=== PATIENT | female | born 1930 | race Caucasian/White ===

== ENCOUNTER 2016-08-14 15:56 | Inpatient (IN) | payer MEDICARE ==
[~2016-08-14] VITALS: Ht 162.6 cm; Wt 58.2 kg
[2016-08-14 16:30] VITALS: BP 131/83; PULSE 50; RESP 20; O2SAT 99
--- NOTE | 2016-08-14 17:22 | ED.REPORT ---
HPI-General Illness Date of Service Aug 14, 2016 ED Provider: Galindo Nava PA-C Danyell is an 86-year-old female who presents with chief complaint of right leg swelling. History was provided by the patient's son due to her memory problems. Son reports that she was discharged from the hospital in [facility] approximately a week ago and moved in with him. She was admitted for acute kidney injury due to aspirin overdose. Son states that she suffers from hip pain and had repeatedly forgotten taking aspirin for the pain. She presents today due to leg swelling, significantly greater on the right than on the left. She also complains of nonhealing sores on the right leg, a persistent dry cough. Denies other complaints. Son denies other medical history or home medications. Code status: DNR, aggressive care otherwise. Nursing Notes Stated Complaint: RIGHT LEG SWELLING Chief Complaint: General Complaint Nursing Notes Reviewed: Yes Allergies: Coded Allergies: No Known Allergies (Unverified , 08/14/16) No Active Prescriptions or Reported Meds General Time Seen by MD: 16:23 Chief Complaint Other (leg swelling, right) Hx Obtained From: Patient Arrived By: Walk-in Sudden in Onset?: No Severity: Current: No pain currently Severity: Maximum: No pain Recent Healthcare: Recent doctor visit, Recent testing Similar Sx Previous: No Past Medical History Past Medical History Notes: records from recent hospitalization in [place] with transfer to [facility] are reviewed Past Medical History ROSHNI Metabolic encephalopathy Hx accidental salicylate overdose with Metabolic encephalopathy 07/2016 requiring breif renal dialysis No history of CHF Past Surgical History none reported Review of Systems General: Denies fever, chills, malaise. HEENT: Denies congestion, headache, sore throat. Respiratory: Admits dry cough. Denies dyspnea, shortness of breath, wheezing. Cardiovascular: Denies chest pain, palpitations. Gastrointestinal: Denies vomiting, diarrhea, abdominal pain. Genitourinary: Denies frequency, urgency, dysuria, hematuria. Otherwise as noted in HPI. Complete sys rev & neg: except as marked. Physical Exam General: Well developed, well nourished, no acute distress. Head: Atraumatic, normocephalic. Eyes: No scleral icterus or injection. No discharge. Vision grossly intact. ENT: Voice clear, hearing grossly intact. Respiratory: Clinically evident cough. Regular rate and rhythm. Fine crackles in all lung stark. Cardiovascular: Regular rate and rhythm, without murmur, gallop or rub. 1+ pitting edema left leg 3+ pitting edema right leg Gastrointestinal: Abdomen flat and non-tender without guarding or rebound. Bowel sounds normoactive. Skin: 2 cm ulcer posterior right lower leg. Warm and dry. Musculoskeletal: Right leg significantly more swollen than the left leg to the level of the upper thigh. Neurological: Grossly nonfocal. Psychological: Appears slightly confused, son provides most history Vital Signs Vital Signs Date Time Temp Pulse Resp B/P Pulse Ox O2 Delivery O2 Flow Rate FiO2 08/14/16 21:12 90 16 128/67 96 08/14/16 18:09 118 25 122/89 98 Room Air 08/14/16 16:30 36.4 50 20 131/83 99 Initial bradycardia noted. Heart rate noted to range from 80-110 on monitor during physical exam Initial VS: Reviewed, Vital signs normal Interpretation & Diagnostics Lab Results Interpretation Result Diagram: 08/14/16 1805 08/14/16 1805 Test 08/14/16 18:05 08/14/16 20:20 White Blood Count 13.9th/mm3 (3.8-10.1) Red Blood Count 4.20mil/mm3 (3.90-5.20) Hemoglobin 12.3g/dL (12.0-15.6) Hematocrit 38.7% (35.0-46.0) Mean Corpuscular Volume 92.1fL (81-100) Mean Corpuscular Hemoglobin 29.3pg (27.0-35.0) Mean Corpuscular Hemoglobin Concent 31.8% (32.0-37.0) Red Cell Distribution Width 16.2% (12.3-15.4) Platelet Count 120bil/L (150-400) Neutrophils (%) (Auto) 79.8% (40-74) Lymphocytes (%) (Auto) 11.1% (14-46) Monocytes (%) (Auto) 8.6% (4-12) Eosinophils (%) (Auto) 0.1% (0-5) Basophils (%) (Auto) 0.1% (0-3) Sodium Level 144mEq/L (134-144) Potassium Level 4.3mEq/L (3.5-5.2) Chloride Level 106mEq/L (97-108) Carbon Dioxide Level 22mmol/L (18-29) Blood Urea Nitrogen 26mg/dL (8-27) Creatinine 1.15mg/dL (0.57-1.00) Estimat Glomerular Filtration Rate 64mL/min (>59) Glucose Level 106mg/dL (60-99) Calcium Level 8.8mg/dL (8.5-10.1) Magnesium Level 2.1mg/dL (1.6-2.6) Total Bilirubin 0.6mg/dL (0.0-1.2) Aspartate Amino Transf (AST/SGOT) 24U/L (0-50) Alanine Aminotransferase (ALT/SGPT) 25U/L (0-32) Alkaline Phosphatase 123U/L (25-165) Troponin T 0.029ug/L (0.0-0.011) Pro-B-Type Natriuretic Peptide 95072je/mL (0-738) Total Protein 6.0g/dL (6.4-8.4) Albumin 3.2g/dL (3.4-5.0) Urine Color Straw (YELLOW) Urine Appearance Slightly cloudy Urine pH 5.5 (5.0-8.0) Urine Specific [place] 1.015 (1.003-1.035) Urine Protein 30mg/dL (NEG,TRACE) Urine Glucose (UA) Negativemg/dL (NEGATIVE) Urine Ketones Negativemg/dL (NEGATIVE) Urine Occult Blood Small (NEGATIVE) Urine Nitrite Positive (NEGATIVE) Urine Bilirubin Negative (NEGATIVE) Urine Urobilinogen Normalmg/dL (NORMAL) Urine Leukocyte Esterase Small (NEGATIVE) Urine RBC 0-2/hpf (0-2) Urine WBC Packed/hpf (0-5) Urine Epithelial Cells Few/hpf (NONE-MOD) Urine Crystals None seen (NONE SEEN) Urine Bacteria Many/hpf (NONE-FEW) Urine Hyaline Casts None/lpf (NONE) Urine Granular Casts None seen (NONE SEEN) Urine Waxy Casts None seen (NONE SEEN) Urine Red Blood Cell Casts None seen (NONE SEEN) Urine White Blood Cell Casts None seen (NONE SEEN) Urine Mucus None seen (None Seen) Urine Trichomonas None seen (NONE SEEN) Urine Yeast None (NONE SEEN) Urine Culture Reflexed Indicated ECG Interpretation Interpreted by: ED physician Abnormal Rate: 120 Rhythm / Conduction: Ectopic beats - PAC's, LBBB - complete X-Ray Chest Interpretation Chest Xray Interpretation: PROCEDURE: X-RAY CHEST ONE VIEW, PORTABLE ([id number]) INDICATIONS: bilateral crackles IMPRESSION: Small bilateral pleural effusions, left greater than right, with adjacent atelectasis. Interpretation / Wet Read by: Interpret - Radiologist, Inter - [facility] CT Chest Interpretation IMPRESSION: No pulmonary embolism Bilateral small-moderate pleural effusions with adjacent atelectasis. Cardiomegaly, and CT evidence of decreased cardiac output. Recommend clinical correlation Rounded consolidation within the right middle lobe which could represent scarring although technically indeterminate. Recommend followup noncontrast chest CT in 3 months to exclude metastatic/malignant nodule. Severely motion degraded examination Dictated by: Alirio Amor M.D. on 08/14/2016 at 20:33 Approved by: Alirio Amor M.D. on 08/14/2016 at 20:33 Study type: CT pulm angiogram Interpretation / Wet Read by: Interpret - Radiologist US Focused Lower Ext Venous PROCEDURE: US VENOUS LEG DUPLEX UNILATERAL, RIGHT INDICATIONS: leg swelling FINDINGS: Thrombus is present within the mid and distal femoral vein, and popliteal vein. IMPRESSION: Deep venous thrombosis in the right lower extremity as above Exam Interpreted by: Radiologist Re-Eval/Medical Decision Med Decision/Clinical Course Presents with right lower extremity edema. Recent admission to the hospital with transfer to higher level of care for acute salicylate toxicity. She is taking excessive doses of aspirin to help with hip pain. did end up having dialysis Records are reviewed. She returned home with her son and daughter right leg is been increasingly swollen came in to have that evaluated she does have a DVT to the mid thigh. She is tachycardic and short of breath assumption was that she did have pulmonary embolus CT scan was ordered and revealed absence of any central pulmonary emboli Labs are notable for dramatically elevated pro BNP consistent with congestive heart failure which fits with clinical exam as well. Slightly elevated troponin likely as a result of the tachycardia and heart failure. EKG is notable for a sinus tach. Previous notes from recent hospitalization indicate that she has no acute cardiovascular issues. Again reviewed CODE STATUS with family like to be a no code at this point but agressive care to that point Time of Eval: 18:10 Re-Evaluation/Progress Note: Discussed finding of DVT with the patient and family. Patient remains comfortable with no change in condition. Time of Eval: 19:12 Re-Evaluation/Progress Note: Care assumed by Dr. Reynoso from the PA. She is comfortable, tachycardic, she has a positive DVT in the RLE. She has a recent discharge from hospital in [facility] after taking too much aspirin for a hip injury putting herself into acute renal failure. Lungs have bibasilar crackles, tachycardic, bilateral lower extremity edema, right more than left, she has a venous stasis ulcer 1x2 cm back of right calf Time of Eval: 21:29 Re-Evaluation/Progress Note: Pt rechecked. Informed pt of need for admission. Pt understands and agrees with plan for admission. All questions addressed. Code status discussed: DNR, aggressive care otherwise. Consultation : Referral / Consult Name: Hope Power MD Consulted With: Hospitalist Call Returned at: 22:21 Supervisor Data Processing: Will see patient, Agrees with eval, Agrees with plan, Accepts admit Counseled Regarding: Diagnosis, Lab results, Need for admission Discharge & Departure Primary Impression: Acute CHF Congestive heart failure type: unspecified congestive heart failure type Qualified Code: I50.9 - Heart failure, unspecified Additional Impressions: Deep vein thrombosis (DVT) of femoral vein of right lower extremity Chronicity: acute Qualified Code: I82.411 - Acute embolism and thrombosis of right femoral vein Leukocytosis Leukocytosis type: unspecified Qualified Code: D72.829 - Elevated white blood cell count, unspecified Sinus tachycardia Ruled Out: Pulmonary embolism, STEMI (ST elevation myocardial infarction), Sepsis Disposition: ADMITTED TO HOSPITAL Discharge Condition All VS Reviewed: Yes Condition: Stable Scribe Attestation Portions of this note were transcribed by Sam Dickens. I, Dr. Reynoso personally performed the history, physical exam and medical decision-making; I reviewed and confirmed the accuracy of the information in the transcribed note. Signed by Sally Magaña, 08/14/15 - 1913 Galindo Nava PA-C Aug 14, 2016 17:22 SAM DICKENS Aug 14, 2016 19:15 Kallie Reynoso MD Aug 14, 2016 22:13
--- NOTE | 2016-08-14 17:58 | DRSVH ---
PROCEDURE: X-RAY CHEST ONE VIEW, PORTABLE ([id number]) INDICATIONS: bilateral crackles TECHNIQUE: One view of the chest was acquired. COMPARISON: None. FINDINGS: Surgical changes and devices: None. Lungs and pleura: Bilateral small pleural effusions, left greater than right. Adjacent atelectasis. N o pneumothorax. Mediastinum: Mediastinal contours appear normal. Heart size is normal. Bones and chest wall: No suspicious bony lesions. Overlying soft tissues appear unremarkable. Late ral curvature of the spine. IMPRESSION: Small bilateral pleural effusions, left greater than right, with adjacent atelectasis. Dictated by: Alirio Amor M.D. on 08/14/2016 at 17:56 Approved by: Alirio Amor M.D. on 08/14/2016 at 17:56
[2016-08-14 18:09] VITALS: BP 122/89; PULSE 118; RESP 25; O2SAT 98
[2016-08-14 18:27] LABS: BASOPHILS % (AUTO) 0.1 % (0-3)
[2016-08-14 18:38] LABS: EOSINOPHILS % (AUTO) 0.1 % (0-5); MONOCYTES % (AUTO) 8.6 % (4-12); Mean Corpuscular Hemoglobin 29.3 pg (27.0-35.0); Mean Corpuscular Volume 92.1 fL (81-100); NEUTROPHILS % (AUTO) 79.8 % (40-74); Platelet Count 120 bil/L (150-400)
--- NOTE | 2016-08-14 18:44 | DRSVH ---
PROCEDURE: US VENOUS LEG DUPLEX UNILATERAL, RIGHT INDICATIONS: leg swelling TECHNIQUE: Real-time imaging, as well as color and pulse Doppler interrogation, were performed of the lower extr emity deep veins from the inguinal ligament to the popliteal fossa. COMPARISON: None. FINDINGS: Thrombus is present within the mid and distal femoral vein, and popliteal vein. IMPRESSION: Deep venous thrombosis in the right lower extremity as above Dictated by: Alirio Amor M.D. on 08/14/2016 at 18:42 Approved by: Alirio Amor M.D. on 08/14/2016 at 18:42
[2016-08-14 18:46] LABS: TROPONIN T 0.029 ug/L (0.0-0.011)
[2016-08-14 19:00] LABS: Magnesium 2.1 mg/dL (1.6-2.6)
--- NOTE | 2016-08-14 20:36 | DRSVH ---
PROCEDURE: CT ANGIO CHEST PULMONARY EMBOLISM ([id number]) INDICATIONS: deep vein thrombosis, tachycardia TECHNIQUE: After the administration of intravenous contrast, 2 mm thick sections acquired from the pulmonary api yuki to the posterior costophrenic angles. 3-dimensional maximum intensity projection (MIP) coronal a nd sagittal reformats were then acquired through the thorax. For radiation dose reduction, the follo wing was used: automated exposure control, adjustment of mA and/or kV according to patient size. COMPARISON: None. FINDINGS: Image quality: Severely motion degraded. Pulmonary arteries: Pulmonary arteries are normal in size, and demonstrate no intraluminal filling d efects to suggest central pulmonary embolism. Lungs and pleura: Bilateral small moderate pleural effusions, left greater than right. Adjacent atel ectasis is seen. 1.2 cm subpleural rounded consolidation image 34 in the right middle lobe Mediastinum: Heart size is enlarged, without pericardial effusion. Reflux of contrast into the hepat ic veins suggests decreased cardiac output. No mediastinal or hilar adenopathy. Thoracic aorta is no rmal in caliber and enhancement. Esophagus is normal in caliber, without hiatal hernia. Bones and chest wall: No suspicious bony lesions. Ribs and thoracic spine appear intact throughout. Thyroid gland unremarkable. No axillary or supraclavicular adenopathy. Abdomen: Visualized upper abdominal solid organs appear normal in the early arterial phase of enhanc ement. IMPRESSION: No pulmonary embolism Bilateral small-moderate pleural effusions with adjacent atelectasis. Cardiomegaly, and CT evidence of decreased cardiac output. Recommend clinical correlation Rounded consolidation within the right middle lobe which could represent scarring although technicall y indeterminate. Recommend followup noncontrast chest CT in 3 months to exclude metastatic/malignant nodule. Severely motion degraded examination Dictated by: Alirio Amor M.D. on 08/14/2016 at 20:33 Approved by: Alirio Amor M.D. on 08/14/2016 at 20:33
[2016-08-14 21:12] VITALS: BP 128/67; PULSE 90; RESP 16; O2SAT 96
[2016-08-14] MEDS ORDERED: Furosemide 10 mg/mL 4 mL Inj IVPUSH ONE (22:05)
[2016-08-14] MEDS ORDERED: Alum-Mag Hydrox-Simeth 30 mL Suspension PO PRN ×2 (22:50→23:15)
[2016-08-14] MEDS ORDERED: Ondansetron 2 mg/mL 2 mL Inj IVPUSH PRN (22:50)
[2016-08-14 23:05] LABS: APPEARANCE,URINE SLIGHTLY CLOUDY (CLEAR,HAZY); COLOR,URINE STRAW (YELLOW); OCCULT BLOOD,URINE SMALL (NEGATIVE); PH,URINE 5.5 (5.0-8.0); UROBILINOGEN,URINE NORMAL (NORMAL)
[2016-08-14] MEDS ORDERED: Senna-Docusate 8.6-50 mg Tablet PO PRN (23:15)
[2016-08-14] MEDS ORDERED: Polyethylene Glycol (PEG) 17 Gm Powder PO PRN (23:15)
[2016-08-14 23:23] VITALS: BP 131/71; PULSE 121; RESP 25; O2SAT 98
[2016-08-14 23:36] VITALS: BP 120/83; PULSE 121; RESP 20; O2SAT 97
[2016-08-14] MEDS ORDERED: Heparin 5,000 Unit/mL Inj IVPUSH PRN (23:50)
[2016-08-14] MEDS ORDERED: Heparin 5,000 Unit/mL Inj IVPUSH ONE (23:50)
[2016-08-15] VITALS (9 sets, daily range): BP systolic 96–135; BP diastolic 49–73; PULSE 64–128; RESP 18–22; O2SAT 91–97
--- NOTE | 2016-08-15 00:09 | PCM.HPMED ---
Subjective Date of Service Aug 14, 2016 Primary Provider: Admitting Physician: Hope Power MD Primary Care Physician: Scottie Tay DO Attending Physician: Hope Power MD Chief Complaint: Right lower extremity swelling and pain History of Present Illness: Danyell is an 86-year-old female with recent history of acute renal failure requiring short-term hemodialysis (secondary to suspected aspirin toxicity), and no other significant medical history who presents to the ER with bilateral lower extremity edema worse on the right and associated with pain. Danyell reports that she has had pain and increased swelling in her right lower extremity for the last several days. She notes that her legs have been swollen since her hospitalization just prior to [facility] in the [facility] in [place]. She presents with her daughter and son-in-law. They report that her primary care physician, Dr. Scottie Tay, came over to the house and looked at her leg, and recommended that they go to the ER. She also reports that there is a sore on the back of her right lower leg that has been weeping and producing some pus (per her family's report). She reports feeling cold in her feet bilaterally. Following her hospitalization, she moved in with her daughter and son-in-law. She was previously ambulatory, but not so much now due to pain in her leg. They otherwise denying bleeding/clotting issues historically, prolonged travel lately. However, she has been spending more time in bed since the swelling got worse. She otherwise denies chest pain, shortness of breath (though she does note that she sleeps at night with a large pillow under her back and head). She is also been having some difficulty with swallowing lately. Her only regular medication, a multivitamin, it is no longer being administered due to this difficulty with swallowing. Family denies any overt difficulties with food or water (though they do note that she does not drink enough), and there has not been any choking or coughing. Danyell does note that there are white spots on her tongue that are irritated by certain foods, and does note that she was not even able to eat an apple today due to this irritation. She otherwise denies complaints. Please note, she is no longer on aspirin. Review of Systems: Comprehensive review of systems conducted and was negative except for the pertinent positives listed in history of present illness above. Allergies Coded Allergies: No Known Allergies (Unverified , 08/14/16) Home Medications Patient and family report that she takes a daily multivitamin, though not lately due to swallowing issues. PMH Reportedly significant for: Acute renal failure secondary to suspected aspirin toxicity, requiring short- term hemodialysis (end of July,) Otherwise denies significant medical history. Reports hysterectomy for unknown purpose decades ago. Otherwise denies significant surgical history Family History Family history is significant for her father who following a myocardial infarction at the age of 56 She otherwise denies significant family medical history Social History Hx Alcohol Use: No Hx Substance Use: No Hx Tobacco Use: No Smoking Status: Never Smoker Living Arrangement: with Family Additional Information Previously of [facility]. Following hospitalization for renal failure around [place] of 2015 she moved in with her daughter and son-in-law, and now lives in [place]. Exam Vital Signs Vital Sign - Last Date Time Temp Pulse Resp B/P Pulse Ox O2 Delivery O2 Flow Rate FiO2 08/14/16 21:12 90 16 128/67 96 08/14/16 18:09 Room Air 08/14/16 16:30 36.4 Exam General: Cooperative, No Acute Distress, sitting up on ER [facility] Head: Normocephalic, atraumatic. External ears normal. Eyes: PERRL, EOMI. Anicteric sclerae. Mouth: Mouth Normal, Mucous Membranes Moist/Colony, there are white elevated spots on the tongue, but no other mucosal indication of erythema or white patches Neck: Neck supple with full range of motion. No Thyromegaly. Chest & Lungs: Clear to auscultation bilaterally with minimal crackles, and no wheezes, or rhonchi. Please note that she has diminished breath sounds in the left base Cardiovascular: Tachycardic Rate/Rhythm, Normal S1, Normal S2, No Murmurs/Rubs/ Gallops appreciated. Radial and posterior tibial pulses are 2+ bilaterally. JVD present Abdomen: Non-tender, Non-distended, No masses, Normoactive bowel tones, Soft Musculoskeletal: Normal Range of Motion, though somewhat lessened due to pain in the right lower extremity Extremities: Moderate to significant pitting edema in the bilateral lower extremities to the thigh (right greater than left). There is some mild prolonged capillary refill in the bilateral toes. There is an area of superficial ulceration on the right posterior lower leg (approximately 3 superficial ulcerations with minimal surrounding erythema and some serous discharge on the bed sheets). The largest of these is approximately 1 cm x 1 cm. Neurological: Alert, Oriented X3, Grossly Neurologically Intact, Cranial Nerves 2-12 Intact, Normal Speech Psych: Normal mood and affect. Thought process and content intact. Lab and Diagnostics Labs Laboratory Tests 72 Hours Test 08/14/16 18:05 08/14/16 20:20 White Blood Count 13.9th/mm3 (3.8-10.1) Red Blood Count 4.20mil/mm3 (3.90-5.20) Hemoglobin 12.3g/dL (12.0-15.6) Hematocrit 38.7% (35.0-46.0) Mean Corpuscular Volume 92.1fL (81-100) Mean Corpuscular Hemoglobin 29.3pg (27.0-35.0) Mean Corpuscular Hemoglobin Concent 31.8% (32.0-37.0) Red Cell Distribution Width 16.2% (12.3-15.4) Platelet Count 120bil/L (150-400) Neutrophils (%) (Auto) 79.8% (40-74) Lymphocytes (%) (Auto) 11.1% (14-46) Monocytes (%) (Auto) 8.6% (4-12) Eosinophils (%) (Auto) 0.1% (0-5) Basophils (%) (Auto) 0.1% (0-3) Sodium Level 144mEq/L (134-144) Potassium Level 4.3mEq/L (3.5-5.2) Chloride Level 106mEq/L (97-108) Carbon Dioxide Level 22mmol/L (18-29) Blood Urea Nitrogen 26mg/dL (8-27) Creatinine 1.15mg/dL (0.57-1.00) Estimat Glomerular Filtration Rate 64mL/min (>59) Glucose Level 106mg/dL (60-99) Calcium Level 8.8mg/dL (8.5-10.1) Magnesium Level 2.1mg/dL (1.6-2.6) Total Bilirubin 0.6mg/dL (0.0-1.2) Aspartate Amino Transf (AST/SGOT) 24U/L (0-50) Alanine Aminotransferase (ALT/SGPT) 25U/L (0-32) Alkaline Phosphatase 123U/L (25-165) Troponin T 0.029ug/L (0.0-0.011) Pro-B-Type Natriuretic Peptide 82283mm/mL (0-738) Total Protein 6.0g/dL (6.4-8.4) Albumin 3.2g/dL (3.4-5.0) Urine Color Straw (YELLOW) Urine Appearance Slightly cloudy Urine pH 5.5 (5.0-8.0) Urine Specific Leon 1.015 (1.003-1.035) Urine Protein 30mg/dL (NEG,TRACE) Urine Glucose (UA) Negativemg/dL (NEGATIVE) Urine Ketones Negativemg/dL (NEGATIVE) Urine Occult Blood Small (NEGATIVE) Urine Nitrite Positive (NEGATIVE) Urine Bilirubin Negative (NEGATIVE) Urine Urobilinogen Normalmg/dL (NORMAL) Urine Leukocyte Esterase Small (NEGATIVE) Urine RBC 0-2/hpf (0-2) Urine WBC Packed/hpf (0-5) Urine Epithelial Cells Few/hpf (NONE-MOD) Urine Crystals None seen (NONE SEEN) Urine Bacteria Many/hpf (NONE-FEW) Urine Hyaline Casts None/lpf (NONE) Urine Granular Casts None seen (NONE SEEN) Urine Waxy Casts None seen (NONE SEEN) Urine Red Blood Cell Casts None seen (NONE SEEN) Urine White Blood Cell Casts None seen (NONE SEEN) Urine Mucus None seen (None Seen) Urine Trichomonas None seen (NONE SEEN) Urine Yeast None (NONE SEEN) Urine Culture Reflexed Indicated Result Diagram: 08/14/16180408/14/161804 X-Rays, CTs and MRIs Date of Service: 08/14/161702 PROCEDURE: US VENOUS LEG DUPLEX UNILATERAL, RIGHT INDICATIONS: leg swelling COMPARISON: None. IMPRESSION: Deep venous thrombosis in the right lower extremity as above Dictated by: Alirio Amor M.D. on 08/14/2016 at 18:42 Date of Service: 08/14/16 1706 PROCEDURE: X-RAY CHEST ONE VIEW, PORTABLE ([id number]) INDICATIONS: bilateral crackles COMPARISON: None. IMPRESSION: Small bilateral pleural effusions, left greater than right, with adjacent atelectasis. Dictated by: Alirio Amor M.D. on 08/14/2016 at 17:56 Date of Service: 08/14/161818 PROCEDURE: CT ANGIO CHEST PULMONARY EMBOLISM ([id number]) INDICATIONS: deep vein thrombosis, tachycardia COMPARISON: None. IMPRESSION: No pulmonary embolism Bilateral small-moderate pleural effusions with adjacent atelectasis. Cardiomegaly, and CT evidence of decreased cardiac output. Recommend clinical correlation Rounded consolidation within the right middle lobe which could represent scarring although technically indeterminate. Recommend followup noncontrast chest CT in 3 months to exclude metastatic/malignant nodule. Severely motion degraded examination Dictated by: Alirio Amor M.D. on 08/14/2016 at 20:33 12-lead ECG Sinus tachycardia with a rate of 119, left axis deviation, prolonged QRS, prolonged QTC (504), left bundle branch block of unknown chronicity, poor R- wave progression, nonspecific ST-T wave changes. No previous ECG for comparison. Assessment & Plan 86-year-old female with recent hospitalization for acute renal failure who presents with lower extremity edema, worse on the right and findings consistent with right lower extremity DVT and congestive heart failure. 1. Congestive heart failure of unknown type and chronicity (with bilateral lower extremity edema, and bilateral pleural effusions), present on admission * Unclear etiology at this time. * Differential includes: CAD, ischemia (difficult to assess by ECG given her bundle branch block) but no symptoms to suggest, no murmurs to suggest valvular etiology, she is not hypertensive, consider: Thyroid dysfunction, infection. * Check TSH and free T4 * Echo tomorrow * Repeat ECG in the morning * Warm and wet: Lasix IV tonight, with reassessment of renal function and symptoms in the morning. Consideration for continuing diuretic in the morning * Following echo consideration for initiating heart failure medications: Diuretic, CESILIA/ARB (or hydralazine and nitrates if renal decompensation), beta edin. * CHF clinic * Telemetry monitoring * Daily standing weights * Chest x-ray in a couple days 2. Right lower extremity DVT, acute, present on admission * Perhaps related to prolonged time in bed following hospitalization * Heparin drip, therapeutic * Avoid compression of lower extremities * Increase out of bed mobility once able to bear weight * No reported falls historically. Consideration for anticoagulation prior to discharge. 3. Superficial cutaneous ulcerations of the right lower extremity, present on admission * Likely secondary to the significant edema in the right lower extremity * Do not appear to be acutely infected, though the possibility is certainly there given her elevated white blood cell count * We will hold off on antibiotics tonight * Wound care ordered * Nursing to follow wound care orders regarding bandaging 4. Leukocytosis with 80% neutrophils, present on admission (family notes that her white blood cells were elevated at previous hospitalization) * Perhaps related to ulceration, but given its unknown chronicity, would hesitate to initiate antibiotics at this time * We will follow up with wound care and continue to trend labs 5. Prolonged QTc, present on admission * Repeat ECG in the morning * She is not on any QT prolonging medications, and this may be secondary to her rhythm * Avoid QT prolonging medications * Keep potassium greater than 4, and magnesium greater than 2 6. Thrombocytopenia of unknown chronicity, present on admission * No indication of clear etiology based on presentation and history * We will continue to follow labs 7. Elevated creatinine in patient with recent history of acute renal failure, present on admission * We will need to request records from previous hospitalization * We will start with diuresis tonight for management of #1, but we will continue to monitor her renal function closely * Avoid renally toxic medications as able 8. Elevated troponin, present on admission * Likely related to CHF and her tachycardia, no history of CAD * Differential includes: CAD/ischemia, elevation secondary to renal insufficiency * We will trend troponins * Telemetry * Management of other acute medical conditions as above 9. Rounded consolidation within the right middle lobe of unknown chronicity, present on admission and noted on CT * Unclear etiology * Differential includes infectious (less likely given benign respiratory presentation), malignant, inflammatory, and also scarring was mentioned by radiology * At this time will not initiate any additional intervention other than as noted above * Radiology recommends chest CT without contrast in 3 months to assess for possibility of malignancy PRN MEDICATIONS - Acetaminophen as needed for mild pain/fever/headache - Bowel regimen as needed Patient is admitted under inpatient status with expected length of stay greater than 2 midnights due to severity of presenting symptoms, risk of adverse event, and complexity of treatment plan. Pain Evaluation: Adequate Pain Control GI Prophylaxis: Not indicated VTE Prophylaxis: Other (therapeutic heparin for DVT) Resuscitation Status: Limited Interventions (okay for defibrillation and medication and BiPAP. NO intubation, NO compressions) Attending Statement Pt seen and examined by myself and agree with above plan. copies to: Scottie Tay Collin T DO Aug 14, 2016 23:56 Hope Power MD Aug 15, 2016 06:08
[2016-08-15] MEDS: Sodium Chloride LOK Flush 10 mL Syringe IVFLUSH SCH ×3 (00:58→16:29)
[2016-08-15] MEDS: Heparin 25K Unit/500mL 0.45 NS 25,000 UNIT in IV Premix 1 EACH IV SCH (01:07)
--- NOTE | 2016-08-15 03:18 | NUR ---
Admit to room 3029 @ 2310 with RLE DVT. Pain controlled by repositioning leg onto pillows and sara for weeping anasarca. A&Ox3 Oriented to room and poc on whiteboard. VSS slightly tachycardic 100's with dry non-productive cough. Sat's 98% on RA.
--- NOTE | 2016-08-15 03:28 | NUR ---
Med Rec not currently taking any medications at this time. Although did mention getting a sleep aid from chiropractor. Patient named the pill "sleep" but could not be more specific. Will follow up with family on dayshift.
[2016-08-15 06:55] LABS: BASOPHILS % (AUTO) 0.2 % (0-3); EOSINOPHILS % (AUTO) 0.2 % (0-5); MONOCYTES % (AUTO) 8.7 % (4-12); Mean Corpuscular Hemoglobin 30.1 pg (27.0-35.0); Mean Corpuscular Volume 91.3 fL (81-100); NEUTROPHILS % (AUTO) 79.1 % (40-74); Platelet Count 125 bil/L (150-400)
[2016-08-15] MEDS ORDERED: cefTRIAXone Inj 2,000 MG in IV Premix 1 EACH IV ONE (07:55)
[2016-08-15] MEDS ORDERED: 0.9% Sodium Chloride 250 ML ONE (09:08)
--- NOTE | 2016-08-15 13:26 | PCM.CHPCAR ---
Consult Subjective Date of service Aug 15, 2016 Date of admit Aug 14, 2016 at 21:53 Provider Requesting Consult Requesting Provider: FANTASMA QUINN HOSPITALIST Primary Care Physician Primary Care Provider: Scottie Tay DO Chief Complaint Leg edema History of Present Illness Danyell is an very pleasant 86 y/o female with no prior cardiac history. She has recently moved to [facility] after recently being hospitalized for acute ASA toxicity and needed dialysis. However she is no longer on dialysis. She presents to [facility] ER with complaints of b/l lower extremity edema worse on right than left. Ultrasound discovered a DVT in her right leg. She has been very ambulatory but since her legs started to swell she has been more sedentary. She denies any bleeding issues. Her pBNP was significantly elevated and had some crackles on lung examination so there were concerns for new onset CHF. She had an echocardiogram just now and on preliminary report she has severely reduced LVEF with apical clot. Her EKG shows ST with LBBB as well. Otherwise, she is comfortable lying in bed and has not had any complaints of CP , SOB at rest, near syncope or syncope. Review of Systems Review of Systems Comprehensive review of systems conducted and was negative except for the pertinent positives listed in history of present illness above. PMH Past Medical History PMH Reportedly significant for: Acute renal failure secondary to suspected aspirin toxicity, requiring short- term hemodialysis (end of July,) Otherwise denies significant medical history. Reports hysterectomy for unknown purpose decades ago. Otherwise denies significant surgical history No Active Prescriptions or Reported Meds Current Inpatient Medications Current Medications Al Hydrox/Mg Hydrox/Simethicone 30 ml Q6 PRN PO; Start 08/14/16 at 22:50; Stop 08/14/16 at 23:40; Status DC Ondansetron HCl Dose range: 4 mg to 8 mg Q4H PRN IVPUSH; Start 08/14/16 at 22:50 Acetaminophen 975 mg Q6H PRN PO; Start 08/14/16 at 22:50; Stop 08/14/16 at 23:40 ; Status DC Sodium Chloride 10 ml GEETHA IVFLUSH Last administered on 08/15/16t 00:58; Admin Dose 10 ML; Start 08/15/16 at 00:30 Al Hydrox/Mg Hydrox/Simethicone 30 ml Q6 PRN PO; Start 08/14/16 at 23:15 Senna 2 tablet BID PRN PO; Start 08/14/16 at 23:15 Polyethylene Glycol 17 gm DAILY PRN PO; Start 08/14/16 at 23:15 Acetaminophen 650 mg Q6H PRN PO Last administered on 08/15/16 06:03; Admin Dose 650 MG; Start 08/14/16 at 23:15 Heparin Sodium (Porcine) Per Protocol for a... PRN PRN IVPUSH; Start 08/14/16 at 23:50 Aspirin 81 mg DAILY PO; Start 08/15/16 at 08:30; Stop 08/15/16 at 08:30; Status DC Metoprolol Tartrate 12.5 mg BID PO Last administered on 08/15/16 09:17; Admin Dose 12.5 MG; Start 08/15/16 at 08:30; Stop 08/15/16 at 12:23; Status DC Lisinopril 2.5 mg DAILY PO; Start 08/15/16 at 12:25 Allergies: Coded Allergies: No Known Allergies (Unverified , 08/14/16) Family History Family History Family history is significant for her father who following a myocardial infarction at the age of 56 She otherwise denies significant family medical history Social History Hx Alcohol Use: NoHx Substance Use: NoHx Tobacco Use: No Smoking Status: Never Smoker Living Arrangement: with Family Exam Vital Signs Vital Sign - Last Date Time Temp Pulse Resp B/P Pulse Ox O2 Delivery O2 Flow Rate FiO2 08/15/16 10:18 128 08/15/16 09:12 36.5 20 117/67 95 Room Air Intake and Output 08/14/16 08/14/16 08/15/16 Cumulative From/Thru 15:00 23:00 07:00 08/14/16 16:30 - 08/15/16 06:48 Intake Total 526 ml 526 ml Output Total 2475 ml 2475 ml Balance -1949 ml -1949 ml Intake Oral 400 ml 400 ml IV Total 126 ml 126 ml Output Urine Total 2475 ml 2475 ml # Bowel Movements 0 0 Objective General: Cooperative, No Acute Distress Head: Normocephalic, atraumatic. External ears normal. Eyes: PERRL, EOMI. Anicteric sclerae. Mouth: Mouth Normal, Mucous Membranes Moist/[place], there are white elevated spots on the tongue, but no other mucosal indication of erythema or white patches Neck: Neck supple with full range of motion. No Thyromegaly. Chest & Lungs: Clear to auscultation bilaterally with minimal crackles, and no wheezes, or rhonchi. Cardiovascular: Tachycardic Rate/Rhythm, Normal S1, Normal S2, No Murmurs/Rubs/ Gallops appreciated. Radial and posterior tibial pulses are 2+ bilaterally. JVD present Abdomen: Non-tender, Non-distended, No masses, Normoactive bowel tones, Soft Musculoskeletal: Normal Range of Motion, though somewhat lessened due to pain in the right lower extremity Extremities: Moderate to significant pitting edema in the bilateral lower extremities to the thigh (right greater than left). Neurological: Alert, Oriented X3, Grossly Neurologically Intact, Cranial Nerves 2-12 Intact, Normal Speech Psych: Normal mood and affect. Thought process and content intact. Lab and Diagnostics Result Diagram: 08/15/1662508/15/16625 X-Rays, CTs and MRIs Date of Service: 08/14/161818 PROCEDURE: CT ANGIO CHEST PULMONARY EMBOLISM ([id number]) INDICATIONS: deep vein thrombosis, tachycardia TECHNIQUE: After the administration of intravenous contrast, 2 mm thick sections acquired from the pulmonary apices to the posterior costophrenic angles. 3-dimensional maximum intensity projection (MIP) coronal and sagittal reformats were then acquired through the thorax. For radiation dose reduction, the following was used: automated exposure control, adjustment of mA and/or kV according to patient size. COMPARISON: None. FINDINGS: Image quality: Severely motion degraded. Pulmonary arteries: Pulmonary arteries are normal in size, and demonstrate no intraluminal filling defects to suggest central pulmonary embolism. Lungs and pleura: Bilateral small moderate pleural effusions, left greater than right. Adjacent atelectasis is seen. 1.2 cm subpleural rounded consolidation image 34 in the right middle lobe Mediastinum: Heart size is enlarged, without pericardial effusion. Reflux of contrast into the hepatic veins suggests decreased cardiac output. No mediastinal or hilar adenopathy. Thoracic aorta is normal in caliber and enhancement. Esophagus is normal in caliber, without hiatal hernia. Bones and chest wall: No suspicious bony lesions. Ribs and thoracic spine appear intact throughout. Thyroid gland unremarkable. No axillary or supraclavicular adenopathy. Abdomen: Visualized upper abdominal solid organs appear normal in the early arterial phase of enhancement. IMPRESSION: No pulmonary embolism Bilateral small-moderate pleural effusions with adjacent atelectasis. Cardiomegaly, and CT evidence of decreased cardiac output. Recommend clinical correlation Rounded consolidation within the right middle lobe which could represent scarring although technically indeterminate. Recommend followup noncontrast chest CT in 3 months to exclude metastatic/malignant nodule. Date of Service: 08/14/161705 PROCEDURE: X-RAY CHEST ONE VIEW, PORTABLE ([id number]) INDICATIONS: bilateral crackles TECHNIQUE: One view of the chest was acquired. COMPARISON: None. FINDINGS: Surgical changes and devices: None. Lungs and pleura: Bilateral small pleural effusions, left greater than right. Adjacent atelectasis. No pneumothorax. Mediastinum: Mediastinal contours appear normal. Heart size is normal. Bones and chest wall: No suspicious bony lesions. Overlying soft tissues appear unremarkable. Lateral curvature of the spine. IMPRESSION: Small bilateral pleural effusions, left greater than right, with adjacent atelectasis. 12-lead ECG ST with LBBB Additional Diagnostics: Date of Service: 08/14/161702 PROCEDURE: US VENOUS LEG DUPLEX UNILATERAL, RIGHT INDICATIONS: leg swelling TECHNIQUE: Real-time imaging, as well as color and pulse Doppler interrogation, were performed of the lower extremity deep veins from the inguinal ligament to the popliteal fossa. COMPARISON: None. FINDINGS: Thrombus is present within the mid and distal femoral vein, and popliteal vein. IMPRESSION: Deep venous thrombosis in the right lower extremity as above Assessment & Plan Problems: (1) Acute CHF Qualifiers: Congestive heart failure type: systolic Qualified Code: I50.21 - Acute systolic (congestive) heart failure Plan: Unsure at this point the etiology of her HFrEF. This could have been insidious. She did mention that she has had to increase her head during sleeping over the past 1 year. Certainly, ischemic heart disease should be considered given her elevated troponins but she does not give much in the way acute coronary syndrome. Give her advance age and current fragile state, the patient, family at bedside, and I all agree to defer any aggressive diagnostic procedure at this time and make a solid attempt to start her on usual HF meds. Plus, she just finished getting off of hemodialysis due to ASA toxicity. For now, continue with IV Lasix and start low dose lisinopril for now. If her BP remains normal and when she is near euvolemic state, then we can consider starting low beta blockers such as metoprolol succinate or carvedilol. Status: Acute ICD Code: I50.9 (2) Apical mural thrombus Plan: She is already on IV heparin. I discussed at length her various options with anticoagulations. It sounds like she will like to go on a NOAC. However after much thought on her recent ARF and reduced CrCl estimated at 32, she will need very close monitoring of her renal function to see if she needs to stay on normal dosing versus reduced dosing. Given this, I think it would be safer to put her on warfarin for now. Status: Chronic ICD Code: I21.3 (3) Elevated troponin Plan: I suspect this is more of a demand ischemic event. If she somewhat fragile and with recent ARF and now we starting her on potential nephrotoxic medications (lisinopril and furosemide), I would certainly hold off on coronary angiogram. We discussed about potential adverse outcomes with such a procedure and she will like to defer it for now. Status: Acute ICD Code: R79.89 (4) LBBB (left bundle branch block) Plan: Most likely chronic. Hospital notes and EKGs from [place] would help to see if this is chronic or new onset. Status: Acute ICD Code: I44.7 (5) Deep vein thrombosis (DVT) of femoral vein of right lower extremity Qualifiers: Chronicity: acute Qualified Code: I82.411 - Acute embolism and thrombosis of right femoral vein Plan: Continue with IV heparin and start warfarin tonight. Status: Acute ICD Code: I82.411 Pain Evaluation: Adequate Pain Control VTE Prophylaxis: Other (therapeutic heparin for DVT) Resuscitation Status: Limited Interventions (okay for defibrillation and medication and BiPAP. NO intubation, NO compressions) Time spent 80 minutes. Macario Meehan MD Aug 15, 2016 13:26
[2016-08-15] MEDS: Furosemide 10 mg/mL 4 mL Inj IVPUSH SCH (13:54)
--- NOTE | 2016-08-15 14:53 | NUR ---
Evaluation completed. Rec: Thin/Regular diet. Medication as tolerated. ESTATE AND TRUST TAX PRINCIPAL to sign off. Please go to "Notes" then click on "Assessments and Notes" (bottom left corner of screen). Then select appropriate discipline tab on top of screen.
--- NOTE | 2016-08-15 16:01 | NUR ---
Telemetry Update: Frequent PSVT Bursts Patient has been Sinus Rhythm 100-120s with frequent short bursts of PSVT in the 160s throughout the day. ABBY Delcid aware.
--- NOTE | 2016-08-15 16:25 | NUR ---
Social Work: Brief note Data: Pt is an 86 y/o female admitted for DVT, CHF, elevated triponin, leukocytosis unk s. Pt's PCP is Dr Tay, pt's insurance is Medicare [facility] A[employer] Supp. EMR reviewed. SENIOR RUBY DEVELOPER met with pt at bedside, role explained. Pt states that she lives in [place] but has been visiting her daughter here for the last 3 weeks. She then stated she needed to use the restroom and her nurse helped her with that. SENIOR RUBY DEVELOPER will complete assessment at at later time. SENIOR RUBY DEVELOPER will continue to follow. Plan: SENIOR RUBY DEVELOPER will attempt assessment at a later time. CARISSA Crowell
--- NOTE | 2016-08-15 17:41 | NUR ---
PSVT's Patient had on and off every several minutes of PSVT's from up to 0743 when composite technician called. HR up to 160s.
--- NOTE | 2016-08-15 18:37 | NUR ---
1703 Troponin level Patient troponin level at 1703 at 0.039 (expected value). First critical troponin value from 0945 at 0.038. notified on both
--- NOTE | 2016-08-15 20:06 | DRSVH ---
[facility] [address] [address] Echocardiogram Report Name: JOVANNY DUBON SStudy Date: 08/15/2016 Height: 64 in Hospital Exam Location: [facility] Weight: 132 lb Gender: Female BSA: 1.6 m2 : 1930 Age: 86 yrs BP: 118/ 61 mmHg Reason For Study: Congestive Heart Failure Ordering Physician: HOSPITALIST [facility] Performed By: Freeman Luciano Referring Physician: AMLLY NAVARRETE Interpretation Summary The left ventricle is mildly dilated. There is a moderate size apical thrombus. Left ventricular systolic function is severely reduced. The ejection fraction is estimated to be 15-20%. There is severe global hypokinesis of the left ventricle. There is a significant dyssynchronous contraction pattern, consistent with a conduction abnormality. The E/A ratio is reversed with an elevated E/E', suggesting impaired early relaxation of the left ventricle with possible increased filling pressures. The right ventricle is not well visualized. The right ventricle grossly appears normal in size with probable normal systolic function. Pulmonary artery pressures cannot be estimated because of the lack of a measurable TR jet velocity. Borderline left atrial enlargement. Right atrial size is normal. There is mild mitral regurgitation. There is mild aortic regurgitation. There is no other significant valvular heart disease. The aortic root is normal size. There is a large left-sided pleural effusion. Procedure: A two-dimensional transthoracic echocardiogram with color flow and Doppler was performed. The study quality was technically adequate. There is no prior echocardiogram noted for this patient. The heart rate ranged between 85-127 bpm during the study. Left Ventricle: The left ventricle is mildly dilated. There is normal left ventricular wall thickness. There is a moderate size apical thrombus. Left ventricular systolic function is severely reduced. The ejection fraction is estimated to be 15-20%. There is severe global hypokinesis of the left ventricle. There is a significant dyssynchronous contraction pattern, consistent with a conduction abnormality. The E/A ratio is reversed with an elevated E/E', suggesting impaired early relaxation of the left ventricle with possible increased filling pressures. Right Ventricle: The right ventricle is not well visualized. The right ventricle grossly appears normal in size with probable normal systolic function. Atria: Borderline left atrial enlargement. Right atrial size is normal. There is no Doppler evidence for an atrial septal defect. Mitral Valve: The mitral valve leaflets are slightly calcified. There is mild mitral regurgitation. Aortic Valve: The aortic valve is not well visualized. The aortic valve opens well. There is mild aortic regurgitation. Tricuspid Valve: The tricuspid valve is not well visualized, but is grossly normal. Pulmonary artery pressures cannot be estimated because of the lack of a measurable TR jet velocity. Pulmonic Valve: The pulmonic valve is not well seen, but is grossly normal. There is no pulmonic valvular regurgitation. There is no other significant valvular heart disease. Great Vessels: The aortic root is normal size. The dimensions of the ascending aorta are normal. The pulmonary artery is not well visualized, but is probably normal size. The IVC is of normal diameter and collapses greater than 50% with a sniff. This suggests a low right atrial pressure of 3 mm Hg. Pericardium/ Pleura There is no pericardial effusion. There is a large left -sided pleural effusion. MMode/2D Measurements & Calculations LVIDd: 5.4 cm RA long axis LVOT diam: 1.8 cm LVIDs: 5.0 cm LA A2 area: 20.0 cm Ao root diam: 2.8 cm FS: 6.8 % LA A4 area: 13.7 cm RA area asc Aorta Diam EPSS: 1.4 cm LA length (vol) IVSd: 0.75 cm : 12.4 cm Ao Arch Diam LVPWd: 0.79 cm LA vol: 52.0 ml RA vol (Proximal trans.) LA vol index : 27.2 ml RA : 16.6 mm2 IVC diam: 2.1 cm LV muñoz. diameter/BSALV sys. diameter/BSA (cm/m^2): 3.3 (cm/m^2): 3.1 Doppler Measurements & Calculations Ao V2 max MV E max vito MV E/A: 0.80 MV dec time : 84.6 cm/sec : 60.1 cm/sec Med Peak E' Vito : 0.22 sec Ao max PG MV A max vito : 2.9 mmHg : 75.6 cm/sec E/E' med: 27.2 Ao mean PG LVOT Max Vito : 63.9 cm/sec MARIA EUGENIA(I,D): 2.1 cm sev ratio Ao V2 mean LV V1 max PG MARIA EUGENIA indexed to BSA : 59.7 cm/sec (cm^2/m^2): 1.3 Ao V2 VTI: 12.3 cm LV V1 VTI: 9.9 cm MARIA EUGENIA(V,D): 2.0 cm2 Reading Physician:ASYA
[2016-08-16] VITALS (8 sets, daily range): BP systolic 91–116; BP diastolic 55–85; PULSE 97–122; RESP 20–28; O2SAT 93–96
[2016-08-16] MEDS: Sodium Chloride LOK Flush 10 mL Syringe IVFLUSH SCH ×3 (00:41→16:29)
[2016-08-16] MEDS: Heparin 25K Unit/500mL 0.45 NS 25,000 UNIT in IV Premix 1 EACH IV SCH (04:33)
--- NOTE | 2016-08-16 05:55 | NUR ---
Heparin drip/Sinus tach/Irregular rate Pt is currently on heparin drip, pt's current ptt is 78.4. Per heparin drip protocol, no change in drip rate. Currently on 13u/kg/hr. Has been having intermittent sinus tachycardia and occasional pvc's and ivcds. MD is notified and aware. Pt denies chest pain, sob, n/v and abd discomfort and has been afebrile overnight. Will continue to monitor.
[2016-08-16 06:07] LABS: BASOPHILS % (AUTO) 0.2 % (0-3); EOSINOPHILS % (AUTO) 1.8 % (0-5); MONOCYTES % (AUTO) 7.6 % (4-12); Mean Corpuscular Hemoglobin 29.5 pg (27.0-35.0); Mean Corpuscular Volume 91.4 fL (81-100); NEUTROPHILS % (AUTO) 76.7 % (40-74); Platelet Count 160 bil/L (150-400)
[2016-08-16 06:19] LABS: INR 1.13 ratio
[2016-08-16 06:29] LABS: Magnesium 1.9 mg/dL (1.6-2.6); Phosphorus 2.8 mg/dL (2.5-4.9)
[2016-08-16] MEDS ORDERED: Potassium Chloride 20 mEq/15 mL 15mL Oral Soln PO ONE (07:30)
[2016-08-16] MEDS: Furosemide 10 mg/mL 4 mL Inj IVPUSH SCH (08:49)
[2016-08-16] MEDS ORDERED: Ciprofloxacin Inj 500 MG in IV Premix 1 EACH IV SCH (10:20)
[2016-08-16] MEDS: Amoxicillin-Clav 875-125 mg Tablet PO SCH ×2 (11:03→20:42)
--- NOTE | 2016-08-16 11:29 | NUR ---
Social Work Initial Assessment: SW met with patient and daughter Joanne, at bedside to discuss discharge plan. Patient is a 86 year old female admitted on 08/14/16 for DVT, CHF, Elevated triponin, and leukocytosis. Patient verified name, address, and contact information. Patient resides with daughter in [place] at this time with recent move from [place]. Patient daughter and family provide 24hr care and support. Patient has previous hospitalization history at [facility]. Patient payer as Medicare and AARP. Patient has no exterminator helper termite disability nor VA benefits. Patient PCP as MD Tay. Patient has no previous HHC or SNF history. Patient has a walker and wheelchair for use. Patient daughter believes patient has AD, SW encouraged daughter to bring in from home. Patient pharmacy of choice as [facility]. SW inquired about possible HHC services if recommended at discharge. Patient daughter states not needed HHC at this time as family will be able to provide 24hr care and assistance. No other needs identified at this time. SW to follow. PLAN: Home with 24hr care and support from daughter and transport via POV, pending clinical course. Grant FERRER Addendum: 08/16/16 at 1138 by SANTINO HACKETT Amended: Links added.
--- NOTE | 2016-08-16 12:39 | PCM.PNMED ---
Subjective Date of Service Aug 16, 2016 Subjective pt remained stable, AAOx1-2 no GIB/hemoptysis, c/o mild back pain, which made her difficult to fall asleep denied PND, orthopnea Exam Vital Signs Vital Sign - Last Date Time Temp Pulse Resp B/P Pulse Ox O2 Delivery O2 Flow Rate FiO2 08/16/16 09:29 36.8 104 21 115/85 95 Room Air Intake and Output 08/15/16 08/15/16 08/16/16 Cumulative From/Thru 15:00 23:00 07:00 08/14/16 16:30 - 08/16/16 05:20 Intake Total 800 ml 373 ml 1699 ml Output Total 800 ml 3275 ml Balance 0 ml 373 ml -1576 ml Intake Oral 800 ml 1200 ml IV Total 373 ml 499 ml Output Urine Total 800 ml 3275 ml # Bowel Movements 0 0 Exam NAD, comfortably laying down on the bed alert, Ox1-2 "this is the hospital in [facility]" no JVD, MMM, no LAD RRR, nl s1, s2 no mrg bibasilar crackles, no wheezing S,ND,NT,normoactive BS+ warm, RLE-weeping tender, erythema, LLE=trace edema IVs and Medications Medications Reviewed: Medications were reviewed in detail Lab and Diagnostics Result Diagram: 08/16/1653908/16/16 0540 X-Rays, CTs and MRIs Date of Service: 08/14/16 170 PROCEDURE: US VENOUS LEG DUPLEX UNILATERAL, RIGHT INDICATIONS: leg swelling COMPARISON: None. IMPRESSION: Deep venous thrombosis in the right lower extremity as above Dictated by: Alirio Amor M.D. on 08/14/2016 at 18:42 Date of Service: 08/14/16 1706 PROCEDURE: X-RAY CHEST ONE VIEW, PORTABLE ([id number]) INDICATIONS: bilateral crackles COMPARISON: None. IMPRESSION: Small bilateral pleural effusions, left greater than right, with adjacent atelectasis. Dictated by: Alirio Amor M.D. on 08/14/2016 at 17:56 Date of Service: 08/14/16 1819 PROCEDURE: CT ANGIO CHEST PULMONARY EMBOLISM ([id number]) INDICATIONS: deep vein thrombosis, tachycardia COMPARISON: None. IMPRESSION: No pulmonary embolism Bilateral small-moderate pleural effusions with adjacent atelectasis. Cardiomegaly, and CT evidence of decreased cardiac output. Recommend clinical correlation Rounded consolidation within the right middle lobe which could represent scarring although technically indeterminate. Recommend followup noncontrast chest CT in 3 months to exclude metastatic/malignant nodule. Severely motion degraded examination Dictated by: Alirio Amor M.D. on 08/14/2016 at 20:33 12-lead ECG Sinus tachycardia with a rate of 119, left axis deviation, prolonged QRS, prolonged QTC (504), left bundle branch block of unknown chronicity, poor R- wave progression, nonspecific ST-T wave changes. No previous ECG for comparison. Assessment & Plan 86-year-old female with recent hospitalization for acute renal failure who presents with lower extremity edema, worse on the right and findings consistent with right lower extremity DVT and congestive heart failure. acute, active #RLE DVT, provoked due to immobilization from recent hospitalization, started on heparin gtt, PE negative on CTA -continue heparin gtt, will bridge with coumadin or NOAC per cardiology(needs to discuss with family) #apical mural thrombus, POA, EKG-LBBB:unknown chronicity, troponins trended up. cannot exclude ACS -appreciate cardiology input, especially ischemic w/u -continue AC as above #CHF, POA, TTE 08/15 showed EF 15-20%, severe global hypokinesis, dyssynchrony, large left-sided effusion presumably cardiac -started lasix 40iv daily, judicious use with close monitoring of BP -started [id number], plan to start BB once pt is euvolemic per #acute encephalopathy, POA, likely toxic metabolic given UTI, multiple acute conditions, also with underlying dementia -frequent reorientation, will verify baseline mentation with family #mild ROSHNI, POA, Cr1.15, currently 1.05, recent hx of asa toxicity, renal failure on temporary dialysis -avoid renal toxin, renal adjust meds, -awaiting record from [facility] in [place] #UTI, POA, E.coli+ pansensitive, afebrile. -started Augmentin bid 08/16 chronic, stable #Thrombocytopenia of unknown chronicity, improved #Rounded consolidation within the right middle lobe of unknown chronicity, present on admission and noted on CT, monitor for now, dispo: likely 2-3more days, Limited Interventions (okay for defibrillation and medication and BiPAP. NO intubation, NO compressions) diet: full liquid, advance as tolerate dvt ppx: systemic AC GI Prophylaxis: Not indicated VTE Prophylaxis: Other (therapeutic heparin for DVT) Resuscitation Status: Limited Interventions (okay for defibrillation and medication and BiPAP. NO intubation, NO compressions) Time spent 35min Corrine Montoya MD Aug 16, 2016 12:39
--- NOTE | 2016-08-16 12:53 | DRSVH ---
PROCEDURE: X-RAY CHEST ONE VIEW, PORTABLE ([id number]) INDICATIONS: 86 year-old female with shortness of breath. TECHNIQUE: One view of the chest was acquired. COMPARISON: [facility], CT, CT ANGIO CHEST PE, 08/14/2016, 19:21. [facility] , CR, XR CHEST 1VW (PORTABLE), 08/14/2016, 17:13. FINDINGS: Patient is mildly rotated on the frontal projection. Surgical changes and devices: None. Lungs and pleura: Trace small bibasilar pleural effusions persist, larger on the left. No pneumothor ax. There is persistent retrocardiac opacity. Right lung base opacities have resolved. Lungs are diony r. Mediastinum: Mediastinal contours appear normal. Cardiomegaly is unchanged. Bones and chest wall: No suspicious bony lesions. Overlying soft tissues appear unremarkable. IMPRESSION: 1. Small bibasilar pleural effusions persist, left larger than right. 2. Persistent retrocardiac compressive atelectasis versus pneumonia. 3. Cardiomegaly as before. Dictated by: Alvaro Choe M.D. on 08/16/2016 at 12:50 Approved by: Alvaro Choe M.D. on 08/16/2016 at 12:50
--- NOTE | 2016-08-16 12:54 | PCM.CONPHA ---
Subjective Leg edema Reason for Pharmacy Consult: Anticoagulation Management Assessment/Plan Assessment/Plan Warfarin Management by Pharmacy Indication: Newly diagnosed DVT CHADS2-VASc: 4 Home Dose: New start INR Goal: 2-3 Duration: Unknown Anticoagulation Trends Lab Date Result Dose INR 08/16/16 1.13 Therapeutic bridge therapy: Heparin gtt Assessment/Plan - Warfarin new start for DVT treatment. Currently on heparin bridge. -Will initiate warfarin 2.5 mg today. -Cardiology to discuss with family NOACs vs. warfarin therapy options with decreased renal fx. -Pharmacy to monitor INR/CBC/signs of bleeding while inpatient. Thanks, Regis Nelson Pharm.D. Regis Nelson Aug 16, 2016 12:53
--- NOTE | 2016-08-16 14:59 | NUR ---
08/16/16 Wound Care [facility] Patient evaluated for wound care to right posterior leg. Patient also complains of left mid back pain and right groin pain. Skin assessed to these areas with no evidence of injury or pressure noted. Patient repositioned for comfort. Wound to posterior right leg, per daughter report, caused from compression wrap at previous hospital. Right leg with DVT and significant edema with weeping due to edema. Periwound area purple. Patient with 3 small open areas forming cluster measuring 4.3cmW x 4.6cmL x 0.2cmD with moderate serous weeping drainage. Entire wound area including purple periwound measures 7cmL x 4.5cmW x 0.2cmD. Open areas with 75% slough and 25% dusky pink wound bed. Cleaned wound area with saline. Applied Aquacel AG and covered with Mepilex 4x4. Heel floated and LE elevated following treatment. Nursing to change dressing every 24 to 48 hours and wound care to follow up as needed. Patient mobile in bed and changing position frequently during treatment. Patient and daughter instructed to continue to change positions frequently to decrease risk for pressure ulcer.
[2016-08-17] VITALS (8 sets, daily range): BP systolic 93–119; BP diastolic 54–74; PULSE 82–128; RESP 18–28; O2SAT 96–99
[2016-08-17] MEDS: Sodium Chloride LOK Flush 10 mL Syringe IVFLUSH SCH ×3 (00:41→17:25)
--- NOTE | 2016-08-17 05:57 | NUR ---
Pain/Diarrhea Pt complains of pain on her right calf and on her lower back. Administer tylenol prn for pain. Altho felt a little relief pt states that pain is still there. Denies chest pain, sob, n/v. Pt had 4 episodes of loose diarrhea on shift. Heparin drip running on 13units/kg/hr. Will wait for the next PTT heparin draw @0500. No s/sx of bleeding noted. Will continue to monitor.
[2016-08-17 06:35] LABS: BASOPHILS % (AUTO) 0.2 % (0-3); EOSINOPHILS % (AUTO) 2.4 % (0-5); MONOCYTES % (AUTO) 10.6 % (4-12); Mean Corpuscular Hemoglobin 29.1 pg (27.0-35.0); Mean Corpuscular Volume 90.7 fL (81-100); NEUTROPHILS % (AUTO) 72.2 % (40-74); Platelet Count 182 bil/L (150-400)
[2016-08-17 06:46] LABS: INR 1.06 ratio
[2016-08-17 07:14] LABS: Magnesium 1.9 mg/dL (1.6-2.6); Phosphorus 2.3 mg/dL (2.5-4.9)
[2016-08-17] MEDS: Furosemide 10 mg/mL 4 mL Inj IVPUSH SCH (09:06)
[2016-08-17] MEDS: Amoxicillin-Clav 875-125 mg Tablet PO SCH ×2 (09:06→20:25)
[2016-08-17] MEDS: Heparin 25K Unit/500mL 0.45 NS 25,000 UNIT in IV Premix 1 EACH IV SCH (13:33)
--- NOTE | 2016-08-17 13:39 | PCM.PNCARD ---
Subjective Date of service Aug 17, 2016 Chief Complaint # Severe cardiomyopathy (EF 15-20%) # Moderate sized LV apical thrombus # Mild mitral regurgitation # Mild aortic insufficiency # Right lower extremity DVT History of Present Illness Mrs. Garcia is very pleasant 86 y/o F with no prior cardiac history. The patient was admitted to [facility] ER on 08/14/2016 with complaints of b/l lower extremity edema worse on right than left. The patient subsequently underwent a venous duplex ultrasound that revealed a DVT in her right leg. The patient's pBNP was significantly elevated and she was noted to have some crackles on lung examination. In lieu of the aforementioned findings there were concerns for a new onset of CHF. The patient had an echocardiogram that showed her to have a severely reduced LVEF with a moderate sized LV apical clot. The patient has recently hospitalized for an acute ASA toxicity that ultimately required hemodialysis. The patient is no longer undergoing HD. She has been very active / ambulatory prior to her recent lower extremity swelling. The patient reports that since her lower extremities have been swelling she has been much more sedentary. She denies any history of bleeding issues. 2-D echocardiogram: The left ventricle is mildly dilated. There is a moderate size apical thrombus. Left ventricular systolic function is severely reduced. The ejection fraction is estimated to be 15-20%. There is severe global hypokinesis of the left ventricle. There is a significant dyssynchronous contraction pattern, consistent with a conduction abnormality. The E/A ratio is reversed with an elevated E/E', suggesting impaired early relaxation of the left ventricle with possible increased filling pressures. The right ventricle is not well visualized. The right ventricle grossly appears normal in size with probable normal systolic function. Pulmonary artery pressures cannot be estimated because of the lack of a measurable TR jet velocity. Borderline left atrial enlargement. Right atrial size is normal. There is mild mitral regurgitation. There is mild aortic regurgitation. There is no other significant valvular heart disease. The aortic root is normal size. There is a large left-sided pleural effusion. Subjective: BP: 102 119/64-73 mmHg, HR: 90-122: Weight: 61.6 kg (stable) Telemetry: SR/ST with occasional PACs and PVCs Today, the patient relates that she is feeling very well. She denies any type of anginal symptom, no shortness of breath, no palpitations, no dizziness, lightheadedness, no presyncope or addison syncopal episodes, no PND/orthopnea. She continues to have an edematous right lower extremity secondary to her DVT. Patient reports that her left lower extremity has returned to its normal size without any pretibial edema. Current medications: 1. Warfarin 2. Carvedilol 6.25 mg one by mouth twice a day (increased to 9.5mg po BID 05/2017) 3. Lisinopril 5 mg 1 by mouth twice a day 4. Lasix 40 mg IV daily. (Converted to Lasix 40 mg by mouth daily 08/17/2016) Labs: 08/17/2016 1. CBC: W 11.5, H/H: 10.9/34.0 2. BMP: N/A +137, K+ 3.7, D/C: 19/0.96 3. Troponin 0.038 (08/16/2016), 0.039 (current) 11-point ROS: 11-point Review of Systems negative (Comprehensive review of systems conducted and was negative except for the pertinent positives listed in history of present illness above.) Exam Vital Signs Vital Sign - Last Date Time Temp Pulse Resp B/P Pulse Ox O2 Delivery O2 Flow Rate FiO2 08/17/16 09:31 36.5 104 24 119/73 96 Room Air Intake and Output 08/16/16 08/16/16 08/17/16 Cumulative From/Thru 15:00 23:00 07:00 08/14/16 16:30 - 08/17/16 00:30 Intake Total 500 ml 1020 ml 3219 ml Output Total 200 ml 225 ml 3700 ml Balance 300 ml 795 ml -481 ml Intake Oral 500 ml 1020 ml 2720 ml IV Total 499 ml Output Urine Total 200 ml 225 ml 3700 ml # Voids 3 3 # Bowel Movements 2 2 Additional Information: General: AAO, Cooperative, No Acute Distress Head: Normocephalic, atraumatic Eyes: Anicteric sclerae. Mouth: Mouth Normal, Mucous Membranes Moist/[place] Neck: Neck supple, No JVD, No HJR Chest & Lungs: Clear to auscultation bilaterally with minimal crackles, and no wheezes, or rhonchi. Cardiovascular: Tachycardic Rate/Rhythm, Normal S1, Normal S2, No Murmurs/Rubs/ Gallops appreciated. Radial and posterior tibial pulses are 2+ bilaterally. Abdomen: Non-tender, Non-distended, No masses, Normoactive bowel tones, Soft Extremities: non pitting edema to RLE, no pretibial edema to LLE. Neurological: Alert, Oriented X3, Normal Speech Psych: Normal mood and affect. Thought process and content intact. Lab and Diagnostics Result Diagram: 08/17/16 0600 08/17/16 0600 Assessment & Plan Assessment # Acute CHF The patient's HFrEF is secondary to her cardiomyopathy (unclear etiology) and is aggravated by her tachycardia.. Recommendation: 1. Continue warfarin 2. Continue Carvedilol 6.25 mg by mouth twice a day 3. Convert IV Lasix to oral Lasix 40 mg by mouth daily (done) 4. Continue lisinopril 5 mg by mouth daily # Severe CM (EF 15-20%) We are uncertain at this time of etiology for the patient's severe cardiomyopathy. Certainly, ischemic heart disease should be considered given her elevated troponins, although, she does not give much in the way of an acute coronary syndrome. Given her advanced age and current fragile state, the patient , family at bedside, and Dr. Meehan all agreed to defer any aggressive diagnostic procedure at this time. Recommendation: 1. Maximize heart failure and ischemic medications as tolerated by the patient # LV Apical mural thrombus The patient is currently on IV heparin and has received her first dose of warfarin. I have discussed at length her various options with anticoagulations ( warfarin and NOAC's). It sounds like she will prefer to go on a NOAC. The patient appears to have recovered very well from her recent ARF secondary to aspirin toxicity. She is tolerating the Lasix and lisinopril well without any significant change in her BUN and creatinine. I have discussed the case at length with Dr. Gonzalez, we feel that it would be safe for the patient to be treated with a NOAC # Elevated Troponins The elevated troponins are more of a demand ischemic event. The patient is somewhat fragile with her recent ARF and now we starting her on potentially nephrotoxic medications (lisinopril and furosemide), at this time, we recommend holding off on coronary angiogram at this time. Dr. Meehan has discussed the potential adverse outcomes associated with cardiac catheterization. The patient has opted to defer cardiac catheterization for now. # LBBB (left bundle branch block) We need to review the records from the [facility] to evaluate whether this is a new onset or chronic left bundle-branch block. # Deep vein thrombosis (DVT) of femoral vein of right lower extremity Recommendation: 1. Anticoagulation recommendation as noted above with LV apical mural thrombus #CKD: In the patient's recent aspirin toxicity and subsequent HD. If she is started on NOAC close monitoring of her creatinine clearance will be necessitated Recommendation: 1. Per primary care team. As above under LV apical mural thrombus. # Mild MR: Stable, continue current medical management # Mild AI: Stable, continue current medical management Problems: (1) Acute CHF Qualifiers: Congestive heart failure type: systolic Qualified Code: I50.21 - Acute systolic (congestive) heart failure Status: Acute ICD Code: I50.9 (2) Apical mural thrombus Status: Chronic ICD Code: I21.3 (3) Elevated troponin Status: Acute ICD Code: R79.89 (4) LBBB (left bundle branch block) Status: Acute ICD Code: I44.7 (5) Deep vein thrombosis (DVT) of femoral vein of right lower extremity Qualifiers: Chronicity: acute Qualified Code: I82.411 - Acute embolism and thrombosis of right femoral vein Status: Acute ICD Code: I82.411 Pain Evaluation: Adequate Pain Control GI Prophylaxis: Not indicated VTE Prophylaxis: Other (therapeutic heparin for DVT) Resuscitation Status: Limited Interventions (okay for defibrillation and medication and BiPAP. NO intubation, NO compressions) Ryan Morales PA-C Aug 17, 2016 13:39
--- NOTE | 2016-08-17 14:32 | PCM.PHAPRO ---
Progress # Right lower extremity DVT Warfarin Management by Pharmacy Indication: Newly diagnosed DVT CHADS2-VASc: 4 Home Dose: New start INR Goal: 2-3 Duration: Unknown Anticoagulation Trends Lab Date Result Dose INR 08/16/16 1.13 2.5 mg INR 08/17/16 1.06 Therapeutic bridge therapy: Heparin gtt Assessment/Plan - Warfarin new start for DVT treatment. Currently on heparin bridge. -Will continue warfarin 2.5 mg today. -In anticipation of discharge with warfarin, will need treatment heparin or LMWH (renally adjusted) for 5 days minimum. -Cardiology to discuss with family NOACs vs. warfarin therapy options with decreased renal fx. -Pharmacy to monitor INR/CBC/signs of bleeding while inpatient. Thanks, Regis Nelson Pharm.D. Regis Nelson Aug 17, 2016 14:32
--- NOTE | 2016-08-17 16:18 | NUR ---
Evaluation completed. Please go to "Notes" then click on "Assessments and Notes" (bottom left corner of screen). Then select appropriate discipline tab on top of screen.
--- NOTE | 2016-08-17 16:39 | PCM.PNMED ---
Subjective Date of Service Aug 17, 2016 Subjective pt felt better, eating well. starting PT today, denied bleeding episode on heparin gtt Exam Vital Signs Vital Sign - Last Date Time Temp Pulse Resp B/P Pulse Ox O2 Delivery O2 Flow Rate FiO2 08/17/16 13:10 36.5 82 18 93/54 96 Room Air Intake and Output 08/16/16 08/16/16 08/17/16 Cumulative From/Thru 15:00 23:00 07:00 08/14/16 16:30 - 08/17/16 00:30 Intake Total 500 ml 1020 ml 3219 ml Output Total 200 ml 225 ml 3700 ml Balance 300 ml 795 ml -481 ml Intake Oral 500 ml 1020 ml 2720 ml IV Total 499 ml Output Urine Total 200 ml 225 ml 3700 ml # Voids 3 3 # Bowel Movements 2 2 Exam NAD, comfortably laying down on the bed AAOx2-3 no JVD, MMM, no LAD RRR, nl s1, s2 no mrg bibasilar crackles, no wheezing S,ND,NT,normoactive BS+ warm, RLE-weeping mildly tender, erythema, LLE-trace edema, less than yesterday IVs and Medications Medications Reviewed: Medications were reviewed in detail Lab and Diagnostics Result Diagram: 08/17/16 0600 08/17/16 0600 X-Rays, CTs and MRIs Date of Service: 08/14/16 1703 PROCEDURE: US VENOUS LEG DUPLEX UNILATERAL, RIGHT INDICATIONS: leg swelling COMPARISON: None. IMPRESSION: Deep venous thrombosis in the right lower extremity as above Dictated by: Alirio Amor M.D. on 08/14/2016 at 18:42 Date of Service: 08/14/16 1706 PROCEDURE: X-RAY CHEST ONE VIEW, PORTABLE ([id number]) INDICATIONS: bilateral crackles COMPARISON: None. IMPRESSION: Small bilateral pleural effusions, left greater than right, with adjacent atelectasis. Dictated by: Alirio Amor M.D. on 08/14/2016 at 17:56 Date of Service: 08/14/16 1819 PROCEDURE: CT ANGIO CHEST PULMONARY EMBOLISM ([id number]) INDICATIONS: deep vein thrombosis, tachycardia COMPARISON: None. IMPRESSION: No pulmonary embolism Bilateral small-moderate pleural effusions with adjacent atelectasis. Cardiomegaly, and CT evidence of decreased cardiac output. Recommend clinical correlation Rounded consolidation within the right middle lobe which could represent scarring although technically indeterminate. Recommend followup noncontrast chest CT in 3 months to exclude metastatic/malignant nodule. Severely motion degraded examination Dictated by: Alirio Amor M.D. on 08/14/2016 at 20:33 12-lead ECG Sinus tachycardia with a rate of 119, left axis deviation, prolonged QRS, prolonged QTC (504), left bundle branch block of unknown chronicity, poor R- wave progression, nonspecific ST-T wave changes. No previous ECG for comparison. Assessment & Plan 86-year-old female with recent hospitalization for acute renal failure who presents with lower extremity edema, worse on the right and findings consistent with right lower extremity DVT and congestive heart failure. acute, active #RLE DVT, provoked due to immobilization from recent hospitalization, started on heparin gtt, PE negative on CTA -continue heparin gtt, consider switching to NOAC tomorrow given stable renal function, although renal function has to be monitored given recent severe ROSHNI with asa toxicity, requiring dialysis. #apical mural thrombus, POA, EKG-LBBB:unknown chronicity, troponins trended up. cannot exclude ACS -appreciate cardiology input, especially ischemic w/u -continue AC as above #CHF, POA, TTE 08/15 showed EF 15-20%, severe global hypokinesis, dyssynchrony, large left-sided effusion presumably cardiac -started lasix 40iv daily, switch to 40mg po tomorrow -started [id number] on admission, coreg 6.25 bid today, increase to 9.5 bid tomorrow, #acute encephalopathy, POA, likely toxic metabolic given UTI, multiple acute conditions, also with underlying dementia, significantly improved, likely at baseline today. -frequent reorientation, #mild ROSHNI, POA, Cr1.15, currently 1.05, recent hx of asa toxicity, renal failure on temporary dialysis -avoid renal toxin, renal adjust meds, #UTI, POA, E.coli+ pansensitive, afebrile. -started Augmentin bid 08/16 to finish 7days. chronic, stable #Thrombocytopenia of unknown chronicity, improved #Rounded consolidation within the right middle lobe of unknown chronicity, present on admission and noted on CT, monitor for now, dispo: likely tomorrow, FU with PT. Limited Interventions (okay for defibrillation and medication and BiPAP. NO intubation, NO compressions) diet:general diet dvt ppx: systemic AC GI Prophylaxis: Not indicated VTE Prophylaxis: Other (therapeutic heparin for DVT) Resuscitation Status: Limited Interventions (okay for defibrillation and medication and BiPAP. NO intubation, NO compressions) Time spent 35min Corrine Montoya MD Aug 17, 2016 16:39
--- NOTE | 2016-08-17 18:18 | NUR ---
back pain patient c/o 6/10 lower back pain that occurs when sitting in semi-fowlers position. gave pt 650mg tylenol and per pts request placed a warm rolled up blanket on her lower back and lowered the HOB. Pt stated that her pain decreased to 0/10 upon reassessment.
[2016-08-18] MEDS: Sodium Chloride LOK Flush 10 mL Syringe IVFLUSH SCH ×3 (00:01→16:30)
[2016-08-18 00:48] VITALS: BP 112/67; PULSE 79; RESP 20; O2SAT 97
[2016-08-18 05:50] VITALS: BP 110/64; PULSE 69; RESP 16; O2SAT 98
--- NOTE | 2016-08-18 06:46 | NUR ---
Bleeding at IV site Pt on heparin drip Pt pulled out IV at left forearm accidently last evening, bleeding from the IV site, pressure dressing applied. Bleeding stopped. Bruises at bilateral arms. Otherwise no active bleeding noted. VSS. Denies chest pain/SOB/N/V/fever/chills.
[2016-08-18 07:11] LABS: BASOPHILS % (AUTO) 0.3 % (0-3); EOSINOPHILS % (AUTO) 3.2 % (0-5); MONOCYTES % (AUTO) 10.2 % (4-12); Mean Corpuscular Hemoglobin 29.4 pg (27.0-35.0); Mean Corpuscular Volume 92.4 fL (81-100); NEUTROPHILS % (AUTO) 70.7 % (40-74); Platelet Count 194 bil/L (150-400)
--- NOTE | 2016-08-18 07:24 | NUR ---
PTT Heparin still pending, report given to next shift.
[2016-08-18 07:41] LABS: Magnesium 1.8 mg/dL (1.6-2.6); Phosphorus 2.8 mg/dL (2.5-4.9)
[2016-08-18 08:00] VITALS: PULSE 73; PULSE 77
[2016-08-18 08:15] LABS: INR 1.16 ratio
[2016-08-18] MEDS: Amoxicillin-Clav 875-125 mg Tablet PO SCH ×2 (08:26→20:23)
--- NOTE | 2016-08-18 10:27 | PCM.PNCARD ---
Subjective Date of service Aug 18, 2016 Chief Complaint # Severe cardiomyopathy (EF 15-20%) # Moderate sized LV apical thrombus # Mild mitral regurgitation # Mild aortic insufficiency # Right lower extremity DVT History of Present Illness Mrs. Garcia is very pleasant 86 y/o F with no prior cardiac history. The patient was admitted to [facility] VIA THE ER on 08/14/2016 with complaints of b/l lower extremity edema worse on right than left. The patient subsequently underwent a venous duplex ultrasound that revealed a DVT in her right leg. The patient's pBNP was significantly elevated and she was noted to have some crackles on lung examination. In lieu of the aforementioned findings there were concerns for a new onset of CHF. The patient had an echocardiogram that showed her to have a severely reduced LVEF with a moderate sized LV apical clot. The patient has recently hospitalized for an acute ASA toxicity that ultimately required hemodialysis. The patient is no longer undergoing HD. She has been very active / ambulatory prior to her recent lower extremity swelling. The patient reports that since her lower extremities have been swelling she has been much more sedentary. She denies any history of bleeding issues. 2-D echocardiogram: The left ventricle is mildly dilated. There is a moderate size apical thrombus. Left ventricular systolic function is severely reduced. The ejection fraction is estimated to be 15-20%. There is severe global hypokinesis of the left ventricle. There is a significant dyssynchronous contraction pattern, consistent with a conduction abnormality. The E/A ratio is reversed with an elevated E/E', suggesting impaired early relaxation of the left ventricle with possible increased filling pressures. The right ventricle is not well visualized. The right ventricle grossly appears normal in size with probable normal systolic function. Pulmonary artery pressures cannot be estimated because of the lack of a measurable TR jet velocity. Borderline left atrial enlargement. Right atrial size is normal. There is mild mitral regurgitation. There is mild aortic regurgitation. There is no other significant valvular heart disease. The aortic root is normal size. There is a large left-sided pleural effusion. Subjective: BP: 93-114/54-70 mmHg HR: 69-91 bpm Weight: 60.5 kg Stable Telem: NSR with occassional PAC's and PVC's Today, the patient relates that she is doing quite well. She denies any type of anginal symptom, no palpitations, no PND/orthopnea, no dizziness, lightheadedness, presyncope or addison syncopal episodes. She does complain of pain and swelling with some weeping in her right lower extremity just above the ankle. Labs: 08/18/2016 1. CMP: Sodium 140, potassium 3.6, BUN/creatinine: 16/0.082 2. Troponins 0.029 (admission), 0.038, 0.039, 0.031 (current) 11-point ROS: 11-point Review of Systems negative ((Comprehensive review of systems conducted and was negative except for the pertinent positives listed in history of present illness above.)) Exam Vital Signs Vital Sign - Last Date Time Temp Pulse Resp B/P Pulse Ox O2 Delivery O2 Flow Rate FiO2 08/18/16 05:50 36.5 69 16 110/64 98 Room Air Intake and Output 08/17/16 08/17/16 08/18/16 Cumulative From/Thru 15:00 23:00 07:00 08/14/16 16:30 - 08/18/16 06:36 Intake Total 100 ml 498 ml 200 ml 4017 ml Output Total 300 ml 400 ml 4400 ml Balance 100 ml 198 ml -200 ml -383 ml Intake Oral 100 ml 300 ml 200 ml 3320 ml IV Total 198 ml 697 ml Output Urine Total 300 ml 400 ml 4400 ml # Voids 4 2 1 10 # Bowel Movements 4 1 7 Additional Information: General: AAO, Cooperative, No Acute Distress Head: Normocephalic, atraumatic Eyes: Anicteric sclerae. Oropharynx: Mucous Membranes Moist/[place] Neck: Neck supple, No JVD, No HJR Chest & Lungs: Clear to auscultation bilaterally with minimal crackles, and no wheezes, or rhonchi. Cardiovascular: Tachycardic Rate/Rhythm, Normal S1, Normal S2, No Murmurs/Rubs/ Gallops appreciated. Radial and posterior tibial pulses are 2+ bilaterally. Abdomen: Non-tender, Non-distended, No masses, Normoactive bowel tones, Soft Extremities: non pitting edema and tenderness to palpation with an area of weeping on the distal, posterior medial aspect of the RLE, no pretibial edema to LLE. Neurological: Alert, Oriented X3, Normal Speech Psych: Normal mood and affect. Thought process and content intact. Lab and Diagnostics Result Diagram: 08/18/1661508/18/16615 Assessment & Plan Assessment # Acute CHF The patient's HFrEF is secondary to her cardiomyopathy (unclear etiology) and is aggravated by her tachycardia. The patient David is currently doing quite well and is very well compensated. She appears to be euvolemic on physical exam.. Recommendation: 1. Continue warfarin (discussed the possible addition of a NOAC with Dr. Valencia) Dr. Valencia related that In lieu of the patient's intracardiac thrombus , he would like to avoid an NOAC at this time and continue with warfarin. 2. Continue Carvedilol 6.25 mg by mouth twice a day 3. Continue Lasix 40 mg by mouth daily (done) 4. Continue lisinopril 5 mg by mouth daily # Severe CM (EF 15-20%) We are uncertain at this time of etiology for the patient's severe cardiomyopathy. Certainly, ischemic heart disease should be considered given her elevated troponins, although, she does not give much in the way of an acute coronary syndrome. Given her advanced age and current fragile state, the patient , family at bedside, and Dr. Meehan all agreed to defer any aggressive diagnostic procedure at this time. Recommendation: 1. Maximize heart failure and ischemic medications as tolerated by the patient # LV Apical mural thrombus The patient is currently on IV heparin and has received her first dose of warfarin. I have discussed at length her various options with anticoagulations ( warfarin and NOAC's). It sounds like she will prefer to go on a NOAC. The patient appears to have recovered very well from her recent ARF secondary to aspirin toxicity. She is tolerating the Lasix and lisinopril well without any significant change in her BUN and creatinine. I have discussed the case at length with Dr. Gonzalez, we feel that it would be safe for the patient to be treated with a NOAC # Elevated Troponins The elevated troponins are more of a demand ischemic event. The patient is doing very well she denies any type of anginal symptoms, no shortness of breath or dyspnea. The troponins have normalized. The patient is somewhat fragile with her recent ARF and now we starting her on potentially nephrotoxic medications (lisinopril and furosemide), at this time, we recommend holding off on exam coronary angiogram at this time. Dr. Meehan has discussed the potential adverse outcomes associated with cardiac catheterization. The patient has opted to defer cardiac catheterization for now. # LBBB (left bundle branch block) We need to review the records from the [facility] to evaluate whether this is a new onset or chronic left bundle-branch block. # Deep vein thrombosis (DVT) of femoral vein of right lower extremity Recommendation: 1. Anticoagulation recommendation as noted above with LV apical mural thrombus and RLE DVT #CKD: The patient's recent labs indicate that the patient's renal function has improved and of returned to normal values following the patient's recent aspirin toxicity and subsequent HD. If she is started on NOAC close monitoring of her creatinine clearance will be necessitated Recommendation: 1. Per primary care team. As above under LV apical mural thrombus. # Mild MR: Stable, continue current medical management # Mild AI: Stable, continue current medical management Problems: (1) Acute CHF Qualifiers: Congestive heart failure type: systolic Qualified Code: I50.21 - Acute systolic (congestive) heart failure Status: Acute ICD Code: I50.9 (2) Apical mural thrombus Status: Chronic ICD Code: I21.3 (3) Elevated troponin Status: Acute ICD Code: R79.89 (4) LBBB (left bundle branch block) Status: Acute ICD Code: I44.7 (5) Deep vein thrombosis (DVT) of femoral vein of right lower extremity Qualifiers: Chronicity: acute Qualified Code: I82.411 - Acute embolism and thrombosis of right femoral vein Status: Acute ICD Code: I82.411 Pain Evaluation: Adequate Pain Control GI Prophylaxis: Not indicated VTE Prophylaxis: Other (therapeutic heparin for DVT) Resuscitation Status: Limited Interventions (okay for defibrillation and medication and BiPAP. NO intubation, NO compressions) Ryan Morales PA-C Aug 18, 2016 10:27
[2016-08-18 11:17] VITALS: BP 115/66; PULSE 78; RESP 23; O2SAT 96
--- NOTE | 2016-08-18 13:49 | NUR ---
Social Work-readiness for discharge: Data:EMR Reviewed. Pt is on day 4 of hospitalization for DVT per H&P. Pt is likely 1-2 days out from discharge. Pt resides at home with her daughter Joanne who provides 28/02 care. PT worked with pt and have cleared pt for home with HH services. SW followed up with pt and daughter Joanne to discuss. Daughter Joanne states that the first week after discharge they are going to be staying with granddaughter in [place], but would like HH Services once back on [place]. SW provided HH choice list, no agency preference. SW referred to the rotating calendar and made referral to Arley Lazcano with [facility] services for RN,PT, and OT, access given. Arley aware that services would not start for another week. Pt's daughter to provide transport home. Phone number and plan written on [employer] board.F2F in the folder. SW will continue to follow. Assessment:Pt to benefit from HH. Plan:Pt to discharge home with family when medically stable via POV. Referral made to [facility] for RN,Pt, and OT, access given. HH to start next week when they are back on [place]. At discharge, pt and daughter to stay with granddaughter who has a single level home for a week. F2F in the folder. SW will continue to follow. CARISSA Chun
--- NOTE | 2016-08-18 13:53 | PCM.PHAPRO ---
Progress # Severe cardiomyopathy (EF 15-20%) # Moderate sized LV apical thrombus # Mild mitral regurgitation # Mild aortic insufficiency # Right lower extremity DVT Warfarin Management by Pharmacy Indication: Newly diagnosed DVT CHADS2-VASc: 4 Home Dose: New start INR Goal: 2-3 Duration: Unknown Anticoagulation Trends Lab Date Result Dose INR 08/16/16 1.13 2.5 mg INR 08/17/16 1.06 2.5 mg INR 08/18/16 1.16 Therapeutic bridge therapy: Heparin gtt Assessment/Plan - Warfarin new start for DVT treatment. Currently on heparin bridge. -Will increase dose to warfarin 4 mg today. -In anticipation of discharge with warfarin, will need treatment heparin or LMWH (renally adjusted) for 5 days minimum. -Cardiology discussed with family NOACs vs. warfarin therapy options with decreased renal fx. Per notes, family would like to transition to NOACs. No orders currently for transition. -Pharmacy to monitor INR/CBC/signs of bleeding while inpatient. Thanks, Regis Nelson Pharm.D. Regis Nelson Aug 18, 2016 13:53
--- NOTE | 2016-08-18 16:34 | NUR ---
choice list provided. CARISSA Chun
[2016-08-18 17:11] LABS: INR 1.2 ratio
[2016-08-18 17:22] VITALS: BP 111/66; PULSE 83; RESP 26; O2SAT 97
--- NOTE | 2016-08-18 18:38 | NUR ---
Pain Pt c/o of lower back gave Tylenol with little affect. Received order for Aqua-Pad, which helped significantly, per pt report. Pt is resting comfortably with call light within reach, bed low and locked, intentional rounding.
[2016-08-18 21:23] VITALS: BP 103/62; PULSE 78; RESP 20; O2SAT 94
[2016-08-18] MEDS: Heparin 25K Unit/500mL 0.45 NS 25,000 UNIT in IV Premix 1 EACH IV SCH (22:48)
--- NOTE | 2016-08-18 23:35 | PCM.PNMED ---
Subjective Date of Service Aug 18, 2016 Subjective Patient complains of low back pain laying in bed more than any other discomfort that she has. Exam Vital Signs Vital Sign - Last Date Time Temp Pulse Resp B/P Pulse Ox O2 Delivery O2 Flow Rate FiO2 08/18/16 21:23 37.0 78 20 103/62 94 Room Air Intake and Output 08/17/16 08/17/16 08/18/16 Cumulative From/Thru 15:00 23:00 07:00 08/14/16 16:30 - 08/18/16 06:36 Intake Total 100 ml 498 ml 200 ml 4017 ml Output Total 300 ml 400 ml 4400 ml Balance 100 ml 198 ml -200 ml -383 ml Intake Oral 100 ml 300 ml 200 ml 3320 ml IV Total 198 ml 697 ml Output Urine Total 300 ml 400 ml 4400 ml # Voids 4 2 1 10 # Bowel Movements 4 1 7 Exam General: Patient is turned on her right side to try and take pressure off of her back she appears to be uncomfortable. HEENT: Head is atraumatic normocephalic. Eyes: Pupils are equally round and reactive to light and accommodation. Extraocular muscles are intact. Sclera are white anicteric. Subconjunctival mucosa is pink. Ears and nose are unremarkable. Oropharynx: There is no mucosal lesions, there is no thrush, there is no pharyngitis. Neck: Is supple, there are no nodes or masses or tenderness. Chest: Is fairly clear to auscultation and percussion. There are no rales, rhonchi, wheezes or rubs. Heart: Rate rhythm is regular. There is no new murmur, rub or gallop. Abdomen: Good bowel sounds are present. Abdomen is soft, nontender, no organomegaly or masses were appreciated. Extremities: Are symmetrical and well perfused. There is no edema, there is no cellulitis, no rash. Neurologic: There are no focal neurological deficits. Cranial nerves II through XII are intact. There are no sensory or motor deficits. Psychiatric: Patients mood is calm and shows no sign of agitation. Genital: Deferred Rectal: Deferred Lab and Diagnostics Result Diagram: 08/18/1616 08/18/16 0616 Microbiology Name: JOVANNY DUBON Age/Sex: 86/F Attend Dr: Hope Power MD Acct: [id number] Unit: [id number] Status: ADM IN Location: [facility] 3029-1 Re08/14/16 Disch: Specimen: [id number] Collected: 08/14/16 Status: COMP Req#: [id number] Received: 08/14/16 Source: URINE CC Sp Desc : PP Mini Dr: Kallie Reynoso MD Ordered: URINE CULT Procedure Result Verified Site Microbiology MERLENE CULT URINE Final 08/16/16 Organism 1 ESCHERICHIA COLI U COLONY COUNT/QUANTITY >100,000 CFU/ml Cefazolin-predicts results for the oral agents, cefaclor,cefdinir, cefpodoximen, cefprozil, cefuroximne axetil, cephalexin and loracarbed when used for therapy of uncomplicated UTI's due to E. coli, K. pneumoniae, and Proteus mirabilis. Cefpodoxime, cefdinir and cefuroxime axetil may be tested individually because some isolates may be susceptible to these agents while testing resistant to cefazolin. (CLSI U478-Z07 pg 53)@VERY YOUNG, WILL TRY TO SET UP TODAY AND RE-INC 1. ESCHERICHIA COLI M.I.C Interp --------- ------ * AMOXICILLIN/CLAVULATE <=2 S * AMPICILLIN <=2 S * CEFAZOLIN (CEPHALOSPORIN) UTI 4 S * CEFEPIME <=1 S * CEFTRIAXONE <=1 S * CEFUROXIME SODIUM 4 S * CIPROFLOXACIN <=0.25 S * ERTAPENEM <=0.5 S * GENTAMICIN <=1 S * IMIPENEM <=1 S * LEVOFLOXACIN <=0.12 S * NITROFURANTOIN 32 S * TETRACYCLINE <=1 S * TOBRAMYCIN <=1 S * TRIMETHOPRIM/SULFAMETHOXAZOLE <=20 S X-Rays, CTs and MRIs Date of Service: 08/14/16 170 PROCEDURE: US VENOUS LEG DUPLEX UNILATERAL, RIGHT INDICATIONS: leg swelling COMPARISON: None. IMPRESSION: Deep venous thrombosis in the right lower extremity as above Dictated by: Alirio Amor M.D. on 08/14/2016 at 18:42 Date of Service: 08/14/161705 PROCEDURE: X-RAY CHEST ONE VIEW, PORTABLE ([id number]) INDICATIONS: bilateral crackles COMPARISON: None. IMPRESSION: Small bilateral pleural effusions, left greater than right, with adjacent atelectasis. Dictated by: Alirio Amor M.D. on 08/14/2016 at 17:56 Date of Service: 08/14/16 1239 PROCEDURE: CT ANGIO CHEST PULMONARY EMBOLISM ([id number]) INDICATIONS: deep vein thrombosis, tachycardia COMPARISON: None. IMPRESSION: No pulmonary embolism Bilateral small-moderate pleural effusions with adjacent atelectasis. Cardiomegaly, and CT evidence of decreased cardiac output. Recommend clinical correlation Rounded consolidation within the right middle lobe which could represent scarring although technically indeterminate. Recommend followup noncontrast chest CT in 3 months to exclude metastatic/malignant nodule. Severely motion degraded examination Dictated by: Alirio Amro M.D. on 08/14/2016 at 20:33 12-lead ECG Sinus tachycardia with a rate of 119, left axis deviation, prolonged QRS, prolonged QTC (504), left bundle branch block of unknown chronicity, poor R- wave progression, nonspecific ST-T wave changes. No previous ECG for comparison. Cardiac Echo Impressions Echocardiogram Report Name: JOVANNY DUBON SStudy Date: 08/15/2016 Height: 64 in Hospital Exam Location: [facility] Weight: 132 lb Gender: Female BSA: 1.6 m2 : 1930 Age: 86 yrs BP: 118/ 61 mmHg Reason For Study: Congestive Heart Failure Ordering Physician: [facility]PITALIST [facility] Performed By: Freeman Luciano Referring Physician: MALLY NAVARRETE Interpretation Summary The left ventricle is mildly dilated. There is a moderate size apical thrombus. Left ventricular systolic function is severely reduced. The ejection fraction is estimated to be 15-20%. There is severe global hypokinesis of the left ventricle. There is a significant dyssynchronous contraction pattern, consistent with a conduction abnormality. The E/A ratio is reversed with an elevated E/E', suggesting impaired early relaxation of the left ventricle with possible increased filling pressures. The right ventricle is not well visualized. The right ventricle grossly appears normal in size with probable normal systolic function. Pulmonary artery pressures cannot be estimated because of the lack of a measurable TR jet velocity. Borderline left atrial enlargement. Right atrial size is normal. There is mild mitral regurgitation. There is mild aortic regurgitation. There is no other significant valvular heart disease. The aortic root is normal size. There is a large left-sided pleural effusion. Assessment & Plan 86-year-old female with recent hospitalization for acute renal failure who presents with lower extremity edema, worse on the right and findings consistent with right lower extremity DVT and congestive heart failure. acute, active # RLE DVT with edema, provoked due to immobilization from recent hospitalization , started on heparin gtt, PE negative on CTA -continue heparin drip and Coumadin by mouth. Will continue heparin for bridging therapy until Coumadin is therapeutic. # Apical mural thrombus, POA, EKG-LBBB:unknown chronicity, troponins trended up. cannot exclude ACS -appreciate cardiology input, especially ischemic w/u -continue AC as above # CHF, POA, TTE 08/15 showed EF 15-20%, severe global hypokinesis, dyssynchrony, large left-sided effusion presumably cardiac -started lasix 40iv daily, switch to 40mg po tomorrow -started [id number] on admission, coreg 6.25 bid today, increase to 9.5 bid tomorrow, # Acute encephalopathy, POA, likely toxic metabolic given UTI, multiple acute conditions, also with underlying dementia, significantly improved, likely at baseline today. -frequent reorientation, # Mild ROSHNI, POA, Cr1.15, currently 1.05, recent hx of asa toxicity, renal failure on temporary dialysis -avoid renal toxin, renal adjust meds, # UTI, POA, E.coli+ pansensitive, afebrile. -started Augmentin bid 08/16 to finish 7days. chronic, stable # Thrombocytopenia of unknown chronicity, improved # Rounded consolidation within the right middle lobe of unknown chronicity, present on admission and noted on CT, monitor for now, Disposition: We will continue heparin for for bridging therapy and discharged home on Coumadin therapeutic. Limited Interventions (okay for defibrillation and medication and BiPAP. NO intubation, NO compressions) Pain Evaluation: Adequate Pain Control GI Prophylaxis: Not indicated VTE Prophylaxis: Other (therapeutic heparin for DVT and a left ventricle apical clot) Resuscitation Status: Limited Interventions (okay for defibrillation and medication and BiPAP. NO intubation, NO compressions) Limited Interventions: Cardioversion/Defibrillation, BiPAP Henry Valencia MD Aug 18, 2016 23:35
[2016-08-19] VITALS (7 sets, daily range): BP systolic 101–132; BP diastolic 59–72; PULSE 77–100; RESP 18–20; O2SAT 95–96
[2016-08-19] MEDS: Sodium Chloride LOK Flush 10 mL Syringe IVFLUSH SCH ×3 (00:53→16:30)
[2016-08-19 03:03] LABS: BASOPHILS % (AUTO) 0.2 % (0-3); MONOCYTES % (AUTO) 9.5 % (4-12); Mean Corpuscular Hemoglobin 29.3 pg (27.0-35.0); Mean Corpuscular Volume 92.8 fL (81-100); NEUTROPHILS % (AUTO) 68.6 % (40-74); Platelet Count 218 bil/L (150-400)
[2016-08-19 03:21] LABS: Magnesium 1.9 mg/dL (1.6-2.6)
[2016-08-19 03:57] LABS: ERYTHROCYTE SEDIMENTATION RATE 36 mm/hr (0-40)
[2016-08-19] MEDS: Amoxicillin-Clav 875-125 mg Tablet PO SCH ×2 (10:21→20:22)
--- NOTE | 2016-08-19 14:55 | PROG NOTE ---
[address] [address] PROGRESS NOTE PATIENT: JOVANNY DUBON : 1930 MR#: [id number] ADMIT: 08/14/2016 JOB ID: [id number] DATE: 08/19/2016 SUBJECTIVE: The patient is a pleasant 86 years old lady who has been healthy all her life. She lived independently in her own house until July 2016, when she had hip pain. She took too much aspirin that caused acute renal failure and required temporary hemodialysis. She was in the hospital for four days. Prior to that hospitalization, she did not take any medication on a regular basis. She denies diabetes, hypertension, or hypercholesterolemia. She has never smoked. After she was discharged from the hospital, she noticed pain and swelling in her right lower extremity. She was found to have occlusive deep venous thrombosis of the mid and distal right femoral vein and popliteal vein. She has been treated with heparin and warfarin. The right leg swelling has improved, as well as the wound in her right calf. Echocardiogram on August 15, 2016, showed mildly dilated left ventricle with ejection fraction 15% to 20%. Moderate-sized apical thrombus. Mild aortic and mild mitral regurgitation. Her heart condition is new to her, as the patient and her daughter are is not aware of any heart problem prior to this hospitalization. The patient is currently having a lot of back pain. She preferred head of the bed elevation rather than lying down flat in her bed. She denies PND, palpitation, syncope, or chest heaviness. Her daughter "Tami" also mentioned that the patient's memory has been on the decline. PHYSICAL EXAMINATION: Reveals a pleasant elderly lady, sitting in chair, appearing in no acute distress. Temperature is 36.9. Blood pressure is 120/83. Pulse 90. Body weight is 59.3 kg. Head and face have normal configuration. Anicteric sclerae. Moist mucosa. Neck: No JVP present in the sitting position. No carotid bruits. Chest: Normal expansion. Diminished breath sounds at base. Heart: The first and second heart sounds are diminished. No gallop or murmur. Abdomen: Soft. Extremities: Right lower extremity has 1+ nonpitting edema. There is an ulcer in her right calf. It is covered by a wound dressing. Neurology: Awake and oriented x3. LABORATORY DATA: Blood tests show hemoglobin 10.9, WBC 10.2, platelets 218. Sodium 146, potassium 3.9, chloride 104, bicarb 24, BUN 23, creatinine 0.89, glucose 105. Troponin peaked at 0.039 on August 15, 2016. Cholesterol 146, triglycerides 92, HDL 40, LDL 87. EKG shows sinus tachycardia. Left bundle-branch block. IMPRESSION: 1. Severe left ventricular systolic dysfunction with ejection fraction 15% to 20%. 2. Apical mural thrombus. 3. Left bundle-branch block. 4. Deep venous thrombosis of the right femoral and popliteal veins. 5. Small ulcer in her right calf, improving. PLAN: The patient is currently receiving appropriate medical management for left ventricular systolic dysfunction with lisinopril and carvedilol. I would like to manage her conservatively at this point. I discussed with the patient and her daughter regarding possible cause of her left ventricular systolic dysfunction. I believe that she had a cardiac event sometime in the past, as apical thrombus takes time to develop. I would defer pharmacologic stress sestamibi at this time in view of her back pain. I also discussed with the patient and her daughter regarding chronic anticoagulation. I will start her on Eliquis at the dose of 2.5 mg twice daily tomorrow. Thank you for allowing me to participate in her care. Note: The time spent with the patient and her daughter was 60 minutes. TAMICAD
[2016-08-19 15:31] LABS: INR 1.66 ratio
--- NOTE | 2016-08-19 17:54 | PCM.PHAPRO ---
Progress Date of Service: Aug 19, 2016 Requesting Provider: Henry Valencia MD # Severe cardiomyopathy (EF 15-20%) # Moderate sized LV apical thrombus # Mild mitral regurgitation # Mild aortic insufficiency # Right lower extremity DVT Progress # Severe cardiomyopathy (EF 15-20%) # Moderate sized LV apical thrombus # Mild mitral regurgitation # Mild aortic insufficiency # Right lower extremity DVT Warfarin Management by Pharmacy Indication: Newly diagnosed DVT CHADS2-VASc: 4 Home Dose: New start INR Goal: 2-3 Duration: Unknown Anticoagulation Trends Lab Date Result Dose INR 08/16/16 1.13 2.5 mg INR 08/17/16 1.06 2.5 mg INR 08/18/16 1.16 4 mg INR 08/19/16 1.66 5 mg Therapeutic bridge therapy: Heparin gtt Assessment/Plan Patient was to d/c heparin drip and start Eliquis 08/20/16 in AM ordered by Dr. Trejo, but after speaking with family Dr. Valencia decided to d/c those orders and keep patient on Warfarin per pharmacy and heparin drip. After discussion of current INR and goal we mutually decided to start the patient tonight on a OT dose of 5 mg and continue to watch INR trends. -Pharmacy to monitor INR/CBC/signs of bleeding while inpatient. Thanks, Indira Bowers PharmD Aug 19, 2016 17:54
--- NOTE | 2016-08-19 19:16 | NUR ---
Leg/back pain pt reported 7/10 leg pain with movement and 6/10 back pain at rest. Notified MD. placed order for ultram Q6, administered and reassessed pt who was sleeping with no s/s of discomfort
--- NOTE | 2016-08-19 22:56 | PCM.PNMED ---
Subjective Date of Service Aug 19, 2016 Subjective Patient is up in chair with her right lower extremity elevated on the bed and she is feeling better today. However the skin lesion on her posterior calf is causing her more pain today than her back. Exam Vital Signs Vital Sign - Last Date Time Temp Pulse Resp B/P Pulse Ox O2 Delivery O2 Flow Rate FiO2 08/19/16 21:31 37.7 84 18 101/59 96 Room Air Intake and Output 08/18/16 08/18/16 08/19/16 Cumulative From/Thru 15:00 23:00 07:00 08/14/16 16:30 - 08/19/16 06:23 Intake Total 834 ml 4851 ml Output Total 650 ml 5050 ml Balance 184 ml -199 ml Intake Oral 450 ml 3770 ml IV Total 384 ml 1081 ml Output Urine Total 650 ml 5050 ml # Voids 10 # Bowel Movements 7 Exam General: Patient appears more comfortable sitting up in a chair with her right leg elevated. HEENT: Head is atraumatic normocephalic. Eyes: Pupils are equally round and reactive to light and accommodation. Extraocular muscles are intact. Sclera are white anicteric. Subconjunctival mucosa is pink. Ears and nose are unremarkable. Oropharynx: There is no mucosal lesions, there is no thrush, there is no pharyngitis. Neck: Is supple, there are no nodes or masses or tenderness. Chest: Is fairly clear to auscultation and percussion. There are no rales, rhonchi, wheezes or rubs. Heart: Rate, rhythm is regular. There is no new murmur, rub or gallop. Abdomen: Good bowel sounds are present. Abdomen is soft, nontender, no organomegaly or masses were appreciated. Extremities: Right lower extremity edema has improved since yesterday. The erythema is also improved. However, there still remains a wound in the area of the distal posterior calf that was present on admission from hospitalization in the [facility] reportedly caused by sequential compression devices. This is according to the daughter. This area is clean and dry there is no necrotic tissue there is no evidence of surrounding crepitance or cellulitis. Minimal to no purulent drainage. Neurologic: There are no focal neurological deficits. Cranial nerves II through XII are intact. There are no sensory or motor deficits. Psychiatric: Patients mood is calm and shows no sign of agitation. Genital: Deferred Rectal: Deferred Lab and Diagnostics Result Diagram: 08/19/1623208/19/16232 Microbiology Name: JOVANNY DUBON Age/Sex: 86/F Attend Dr: Hope Power MD Acct: [id number] Unit: [id number] Status: ADM IN Location: [facility] 3029-1 Re08/14/16 Disch: Specimen: [id number] Collected: 08/14/16 Status: COMP Req#: [id number] Received: 08/14/16 Source: URINE CC Sp Desc : MARZENA Morse Dr: Kallie Reynoso MD Ordered: URINE CULT Procedure Result Verified Site Microbiology MERLENE CULT URINE Final 08/16/16-41 Organism 1 ESCHERICHIA COLI U COLONY COUNT/QUANTITY >100,000 CFU/ml Cefazolin-predicts results for the oral agents, cefaclor,cefdinir, cefpodoximen, cefprozil, cefuroximne axetil, cephalexin and loracarbed when used for therapy of uncomplicated UTI's due to E. coli, K. pneumoniae, and Proteus mirabilis. Cefpodoxime, cefdinir and cefuroxime axetil may be tested individually because some isolates may be susceptible to these agents while testing resistant to cefazolin. (CLSI A142-A74 pg 53)@VERY YOUNG, WILL TRY TO SET UP TODAY AND RE-INC 1. ESCHERICHIA COLI M.I.C Interp --------- ------ * AMOXICILLIN/CLAVULATE <=2 S * AMPICILLIN <=2 S * CEFAZOLIN (CEPHALOSPORIN) UTI 4 S * CEFEPIME <=1 S * CEFTRIAXONE <=1 S * CEFUROXIME SODIUM 4 S * CIPROFLOXACIN <=0.25 S * ERTAPENEM <=0.5 S * GENTAMICIN <=1 S * IMIPENEM <=1 S * LEVOFLOXACIN <=0.12 S * NITROFURANTOIN 32 S * TETRACYCLINE <=1 S * TOBRAMYCIN <=1 S * TRIMETHOPRIM/SULFAMETHOXAZOLE <=20 S X-Rays, CTs and MRIs Date of Service: 08/14/16 7412 PROCEDURE: US VENOUS LEG DUPLEX UNILATERAL, RIGHT INDICATIONS: leg swelling COMPARISON: None. IMPRESSION: Deep venous thrombosis in the right lower extremity as above Dictated by: Alirio Amor M.D. on 08/14/2016 at 18:42 Date of Service: 08/14/16 1706 PROCEDURE: X-RAY CHEST ONE VIEW, PORTABLE ([id number]) INDICATIONS: bilateral crackles COMPARISON: None. IMPRESSION: Small bilateral pleural effusions, left greater than right, with adjacent atelectasis. Dictated by: Alirio Amor M.D. on 08/14/2016 at 17:56 Date of Service: 08/14/16 1819 PROCEDURE: CT ANGIO CHEST PULMONARY EMBOLISM ([id number]) INDICATIONS: deep vein thrombosis, tachycardia COMPARISON: None. IMPRESSION: No pulmonary embolism Bilateral small-moderate pleural effusions with adjacent atelectasis. Cardiomegaly, and CT evidence of decreased cardiac output. Recommend clinical correlation Rounded consolidation within the right middle lobe which could represent scarring although technically indeterminate. Recommend followup noncontrast chest CT in 3 months to exclude metastatic/malignant nodule. Severely motion degraded examination Dictated by: Alirio Amor M.D. on 08/14/2016 at 20:33 12-lead ECG Sinus tachycardia with a rate of 119, left axis deviation, prolonged QRS, prolonged QTC (504), left bundle branch block of unknown chronicity, poor R- wave progression, nonspecific ST-T wave changes. No previous ECG for comparison. Cardiac Echo Impressions Echocardiogram Report Name: JOVANNY DUBON SStudy Date: 08/15/2016 Height: 64 in Hospital Exam Location: [facility] Weight: 132 lb Gender: Female BSA: 1.6 m2 : 1930 Age: 86 yrs BP: 118/ 61 mmHg Reason For Study: Congestive Heart Failure Ordering Physician: [facility]OSPITALIST [facility] Performed By: Freeman Luciano Referring Physician: MALLY NAVARRETE Interpretation Summary The left ventricle is mildly dilated. There is a moderate size apical thrombus. Left ventricular systolic function is severely reduced. The ejection fraction is estimated to be 15-20%. There is severe global hypokinesis of the left ventricle. There is a significant dyssynchronous contraction pattern, consistent with a conduction abnormality. The E/A ratio is reversed with an elevated E/E', suggesting impaired early relaxation of the left ventricle with possible increased filling pressures. The right ventricle is not well visualized. The right ventricle grossly appears normal in size with probable normal systolic function. Pulmonary artery pressures cannot be estimated because of the lack of a measurable TR jet velocity. Borderline left atrial enlargement. Right atrial size is normal. There is mild mitral regurgitation. There is mild aortic regurgitation. There is no other significant valvular heart disease. The aortic root is normal size. There is a large left-sided pleural effusion. Assessment & Plan 86-year-old female with recent hospitalization for acute renal failure who presents with lower extremity edema, worse on the right and findings consistent with right lower extremity DVT and congestive heart failure. acute, active # RLE DVT with edema, provoked due to immobilization from recent hospitalization , started on heparin gtt, PE negative on CTA -continue heparin drip and Coumadin by mouth. Will continue heparin for bridging therapy until Coumadin is therapeutic. # Apical mural thrombus, POA, EKG-LBBB:unknown chronicity, troponins trended up. cannot exclude ACS -appreciate cardiology input, especially ischemic w/u -continue AC as above -Dr. Macario Meehan had recommended Coumadin to the family and the patient, and the patient's daughter and patient would like to continue Coumadin rather than Eliquis. We will therefore continue bridging therapy with heparin drip and discontinue when Coumadin is therapeutic. Then discharge home on Coumadin. Appreciate Dr. Gonzalez's follow-up on this patient. Will discuss case with him. # CHF, POA, TTE 08/15 showed EF 15-20%, severe global hypokinesis, dyssynchrony, large left-sided effusion presumably cardiac -started lasix 40iv daily, switch to 40mg po tomorrow -started [id number] on admission, coreg 6.25 bid today, increase to 9.5 bid tomorrow, # Acute encephalopathy, POA, likely toxic metabolic given UTI, multiple acute conditions, also with underlying dementia, significantly improved, likely at baseline today. -frequent reorientation, # Mild ROSHNI, POA, Cr1.15, currently 1.05, recent hx of asa toxicity, renal failure on temporary dialysis -avoid renal toxin, renal adjust meds, # UTI, POA, E.coli+ pansensitive, afebrile. -started Augmentin bid 08/16 to finish 7days. chronic, stable # Thrombocytopenia of unknown chronicity, improved # Rounded consolidation within the right middle lobe of unknown chronicity, present on admission and noted on CT, monitor for now, Disposition: We will continue heparin for for bridging therapy and discharged home on Coumadin when therapeutic. Limited Interventions (okay for defibrillation and medication and BiPAP. NO intubation, NO compressions) Pain Evaluation: Adequate Pain Control GI Prophylaxis: Not indicated VTE Prophylaxis: Other (therapeutic heparin for DVT and a left ventricle apical clot) Resuscitation Status: Limited Interventions (okay for defibrillation and medication and BiPAP. NO intubation, NO compressions) Limited Interventions: Cardioversion/Defibrillation, BiPAP Henry Valencia MD Aug 19, 2016 22:56
[2016-08-20] VITALS (8 sets, daily range): BP systolic 99–124; BP diastolic 56–71; PULSE 80–114; RESP 16–20; O2SAT 92–98
[2016-08-20] MEDS: Sodium Chloride LOK Flush 10 mL Syringe IVFLUSH SCH ×3 (00:38→16:11)
[2016-08-20 05:13] LABS: BASOPHILS % (AUTO) 0.3 % (0-3); MONOCYTES % (AUTO) 11.7 % (4-12); Mean Corpuscular Hemoglobin 29.2 pg (27.0-35.0); Mean Corpuscular Volume 92.1 fL (81-100); NEUTROPHILS % (AUTO) 65.8 % (40-74); Platelet Count 266 bil/L (150-400)
[2016-08-20 05:33] LABS: INR 2.04 ratio
[2016-08-20] MEDS: Heparin 25K Unit/500mL 0.45 NS 25,000 UNIT in IV Premix 1 EACH IV SCH (05:38)
--- NOTE | 2016-08-20 10:15 | PCM.PNCARD ---
Subjective Date of service Aug 20, 2016 Chief Complaint # Severe cardiomyopathy (EF 15-20%) # Moderate sized LV apical thrombus # Mild mitral regurgitation # Mild aortic insufficiency # Right lower extremity DVT History of Present Illness Mrs. Garcia is very pleasant 86 y/o F with no prior cardiac history. The patient was admitted to [facility] ER on 08/14/2016 with complaints of b/l lower extremity edema worse on right than left. The patient subsequently underwent a venous duplex ultrasound that revealed a DVT in her right leg. The patient's pBNP was significantly elevated and she was noted to have some crackles on lung examination. In lieu of the aforementioned findings there were concerns for a new onset of CHF. The patient had an echocardiogram that showed her to have a severely reduced LVEF with a moderate sized LV apical clot. The patient has recently hospitalized for an acute ASA toxicity that ultimately required hemodialysis. The patient is no longer undergoing HD. She has been very active / ambulatory prior to her recent lower extremity swelling. The patient reports that since her lower extremities have been swelling she has been much more sedentary. She denies any history of bleeding issues. 2-D echocardiogram: The left ventricle is mildly dilated. There is a moderate size apical thrombus. Left ventricular systolic function is severely reduced. The ejection fraction is estimated to be 15-20%. There is severe global hypokinesis of the left ventricle. There is a significant dyssynchronous contraction pattern, consistent with a conduction abnormality. The E/A ratio is reversed with an elevated E/E', suggesting impaired early relaxation of the left ventricle with possible increased filling pressures. The right ventricle is not well visualized. The right ventricle grossly appears normal in size with probable normal systolic function. Pulmonary artery pressures cannot be estimated because of the lack of a measurable TR jet velocity. Borderline left atrial enlargement. Right atrial size is normal. There is mild mitral regurgitation. There is mild aortic regurgitation. There is no other significant valvular heart disease. The aortic root is normal size. There is a large left-sided pleural effusion. Subjective: BP: 124 / 59-71 mmHg HR: 80-114 bpm Weight: 59.3 kg Stable Telem: NSR with occasional PAC's Today, the patient relates that she is doing quite well. She denies any type of anginal symptom, no palpitations, no PND/orthopnea, no dizziness, lightheadedness, presyncope or addison syncopal episodes. She continues to complain of pain and swelling with some weeping in her right lower extremity just above the posterior medial aspect of the right ankle. The patient is up ambulating this morning without any problems other than the pain in her right lower extremity. Labs: 08/20/2016 1. CMP: Sodium 139, potassium 4.1, BUN/creatinine: 11 / 0.94 11-point ROS: 11-point Review of Systems negative (Comprehensive review of systems conducted and was negative except for the pertinent positives listed in history of present illness above.) Exam Vital Signs Vital Sign - Last Date Time Temp Pulse Resp B/P Pulse Ox O2 Delivery O2 Flow Rate FiO2 08/20/16 08:37 36.7 80 16 104/56 96 Room Air Intake and Output 08/19/16 08/19/16 08/20/16 Cumulative From/Thru 15:00 23:00 07:00 08/14/16 16:30 - 08/20/16 06:57 Intake Total 200 ml 614 ml 300 ml 5965 ml Output Total 650 ml 401 ml 600 ml 6701 ml Balance -450 ml 213 ml -300 ml -736 ml Intake Oral 200 ml 320 ml 300 ml 4590 ml IV Total 294 ml 1375 ml Output Urine Total 400 ml 600 ml 6050 ml Stool Total 1 ml 1 ml Urine/Stool Mix 250 ml 400 ml 650 ml # Voids 1 11 # Bowel Movements 1 0 8 Additional Information: General: AAO, Cooperative, No Acute Distress Head: Normocephalic, atraumatic Eyes: Anicteric sclerae. Oropharynx: Mucous Membranes Moist/[place] Neck: Neck supple, No JVD, No HJR Chest & Lungs: Clear to auscultation bilaterally, no wheezes, or rhonchi. Cardiovascular: Tachycardic Rate/Rhythm, Normal S1, Normal S2, No S3, No S4, No Murmurs/Rubs/ appreciated. Radial and posterior tibial pulses are 2+ bilaterally. Abdomen: Non-tender, Non-distended, No masses, Normoactive bowel tones, Soft Extremities: non pitting edema and tenderness to palpation with an area of weeping on the distal, posterior medial aspect of the RLE, no pretibial edema to LLE. Neurological: Alert, Oriented X3, Normal Speech Psych: Normal mood and affect. Thought process and content intact. Lab and Diagnostics Result Diagram: 08/20/16 0504 08/20/16 0507 Assessment & Plan Assessment # Acute CHF The patient's HFrEF is secondary to her cardiomyopathy (unclear etiology) and was aggravated by her tachycardia. The patient is currently doing quite well and is very well compensated. She appears to be euvolemic on physical exam. Her weight has remained stable and her telemetry she remained in a normal sinus rhythm. Recommendation: 1. Continue warfarin (discussed the possible addition of a NOAC with Dr. Valencia) Dr. Valencia related that In lieu of the patient's intracardiac thrombus , he would like to avoid an NOAC at this time and continue with warfarin. 2. Continue Carvedilol 6.25 mg by mouth twice a day 3. Continue Lasix 40 mg by mouth daily (done) 4. Continue lisinopril 5 mg by mouth daily 5. Anticipate discharge to home when cleared by primary care team. 6. Follow-up with cardiology MLP in 1 to 2 weeks. 7. Follow-up with within 3 months. # Severe CM (EF 15-20%) We are uncertain at this time of etiology for the patient's severe cardiomyopathy. Certainly, ischemic heart disease should be considered given her elevated troponins, although, she does not give much in the way of an acute coronary syndrome. Recommendation: 1. Maximize heart failure and ischemic medications as tolerated by the patient # LV Apical mural thrombus The patient is currently on IV heparin and has received her first dose of warfarin. I have discussed at length her various options with anticoagulations ( warfarin and NOAC's). It sounds like she will prefer to go on a NOAC. The patient appears to have recovered very well from her recent ARF secondary to aspirin toxicity. She is tolerating the Lasix and lisinopril well without any significant change in her BUN and creatinine. I have discussed the case at length with Dr. Gonzalez, we feel that it would be safe for the patient to be treated with a NOAC # Elevated Troponins The elevated troponins are more of a demand ischemic event related to the stress test on a hard by her atrial fibrillation with rapid ventricular response. The patient is doing very well she denies any type of anginal symptoms, no shortness of breath or dyspnea. The troponins have normalized. The patient is somewhat fragile with her recent ARF and now we starting her on potentially nephrotoxic medications (lisinopril and furosemide), at this time, we recommend holding off on a coronary angiogram. Dr. Meehan has discussed the potential adverse outcomes associated with cardiac catheterization. The patient has opted to defer cardiac catheterization for now. # LBBB (left bundle branch block) We need to review the records from the [facility] to evaluate whether this is a new onset or chronic left bundle-branch block. # Deep vein thrombosis (DVT) of femoral vein of right lower extremity Recommendation: 1. Anticoagulation recommendation as noted above with LV apical mural thrombus and RLE DVT #CKD: The patient's recent labs indicate that the patient's renal function has improved and of returned to normal values following the patient's recent aspirin toxicity and subsequent HD. If she is started on NOAC close monitoring of her creatinine clearance will be necessitated Recommendation: 1. Per primary care team. As above under LV apical mural thrombus. # Mild MR: Stable, continue current medical management # Mild AI: Stable, continue current medical management Problems: (1) Acute CHF Qualifiers: Congestive heart failure type: systolic Qualified Code: I50.21 - Acute systolic (congestive) heart failure Status: Acute ICD Code: I50.9 (2) Apical mural thrombus Status: Chronic ICD Code: I21.3 (3) Elevated troponin Status: Acute ICD Code: R79.89 (4) LBBB (left bundle branch block) Status: Acute ICD Code: I44.7 (5) Deep vein thrombosis (DVT) of femoral vein of right lower extremity Qualifiers: Chronicity: acute Qualified Code: I82.411 - Acute embolism and thrombosis of right femoral vein Status: Acute ICD Code: I82.411 Pain Evaluation: Adequate Pain Control GI Prophylaxis: Not indicated VTE Prophylaxis: Other (therapeutic heparin for DVT and a left ventricle apical clot) Resuscitation Status: Limited Interventions (okay for defibrillation and medication and BiPAP. NO intubation, NO compressions) Limited Interventions: Cardioversion/Defibrillation, BiPAP Ryan Morales PA-C Aug 20, 2016 10:15
[2016-08-20] MEDS: Amoxicillin-Clav 875-125 mg Tablet PO SCH ×2 (10:19→21:06)
--- NOTE | 2016-08-20 11:56 | PCM.CONPHA ---
Subjective Date of Service: Aug 20, 2016 # Severe cardiomyopathy (EF 15-20%) # Moderate sized LV apical thrombus # Mild mitral regurgitation # Mild aortic insufficiency # Right lower extremity DVT Reason for Pharmacy Consult: Anticoagulation Management Objective Vital Signs Date Time Temp Pulse Resp B/P Pulse Ox O2 Delivery O2 Flow Rate FiO2 08/20/16 10:50 Room Air 08/20/16 08:37 36.7 80 16 104/56 96 Room Air 08/20/16 08:00 98 08/20/16 05:14 36.9 102 18 124/71 95 Room Air 08/20/16 05:11 114 08/20/16 00:48 36.9 98 18 109/63 98 Room Air 08/19/16 21:31 37.7 84 18 101/59 96 Room Air 08/19/16 18:43 37.1 85 18 101/60 95 Room Air 08/19/16 15:03 36.7 100 20 110/69 95 Room Air Intake and Output 08/18/16 08/19/16 08/20/16 00:00 00:00 00:00 Intake Total 598 ml 1034 ml 814 ml Output Total 300 ml 1050 ml 1051 ml Balance 298 ml -16 ml -237 ml Weight (Kilograms): 59.300 Height (Feet): 5 Height (Inches): 4.00 Test 08/14/16 18:05 08/14/16 20:20 08/15/16 06:26 08/16/16 05:40 Pro-B-Type Natriuretic Peptide 97527ue/mL (0-738) Prealbumin 13mg/dL (20-40) Thyroid Stimulating Hormone (TSH) 4.860uIU/mL (0.450-4.500) Free Thyroxine 1.12ng/dL (0.82-1.77) Urine Color Straw (YELLOW) Urine Appearance Slightly cloudy Urine pH 5.5 (5.0-8.0) Urine Specific [place] 1.015 (1.003-1.035) Urine Protein 30mg/dL (NEG,TRACE) Urine Glucose (UA) Negativemg/dL (NEGATIVE) Urine Ketones Negativemg/dL (NEGATIVE) Urine Occult Blood Small (NEGATIVE) Urine Nitrite Positive (NEGATIVE) Urine Bilirubin Negative (NEGATIVE) Urine Urobilinogen Normalmg/dL (NORMAL) Urine Leukocyte Esterase Small (NEGATIVE) Urine RBC 0-2/hpf (0-2) Urine WBC Packed/hpf (0-5) Urine Epithelial Cells Few/hpf (NONE-MOD) Urine Crystals None seen (NONE SEEN) Urine Bacteria Many/hpf (NONE-FEW) Urine Hyaline Casts None/lpf (NONE) Urine Granular Casts None seen (NONE SEEN) Urine Waxy Casts None seen (NONE SEEN) Urine Red Blood Cell Casts None seen (NONE SEEN) Urine White Blood Cell Casts None seen (NONE SEEN) Urine Mucus None seen (None Seen) Urine Trichomonas None seen (NONE SEEN) Urine Yeast None (NONE SEEN) Urine Culture Reflexed Indicated Triglycerides Level 92mg/dL (0-149) Cholesterol Level 146mg/dL (100-199) LDL Cholesterol, Calculated 87.600mg/dL (0-99) VLDL Cholesterol 18.400mg/dL HDL Cholesterol 40mg/dL (>39) Cholesterol/HDL Ratio 3.65 (0.0-4.4) Procalcitonin 0.10ng/mL (See Comment) Troponin T 0.031ug/L (0.0-0.011) Test 08/17/16 20:19 08/18/16 06:16 08/19/16 02:33 08/20/16 05:07 Hold Urine Received (Received) Phosphorus Level 2.8mg/dL (2.5-4.9) Erythrocyte Sedimentation Rate 36mm/hr (0-40) Magnesium Level 1.9mg/dL (1.6-2.6) White Blood Count 9.8th/mm3 (3.8-10.1) Red Blood Count 3.67mil/mm3 (3.90-5.20) Hemoglobin 10.7g/dL (12.0-15.6) Hematocrit 33.8% (35.0-46.0) Mean Corpuscular Volume 92.1fL (81-100) Mean Corpuscular Hemoglobin 29.2pg (27.0-35.0) Mean Corpuscular Hemoglobin Concent 31.7% (32.0-37.0) Red Cell Distribution Width 15.6% (12.3-15.4) Platelet Count 266bil/L (150-400) Neutrophils (%) (Auto) 65.8% (40-74) Lymphocytes (%) (Auto) 18.8% (14-46) Monocytes (%) (Auto) 11.7% (4-12) Eosinophils (%) (Auto) 3.0% (0-5) Basophils (%) (Auto) 0.3% (0-3) Prothrombin Time 22.1sec (8.1-12.5) Prothromb Time International Ratio 2.04ratio Sodium Level 139mEq/L (134-144) Potassium Level 4.1mEq/L (3.5-5.2) Chloride Level 100mEq/L (97-108) Carbon Dioxide Level 24mmol/L (18-29) Blood Urea Nitrogen 11mg/dL (8-27) Creatinine 0.94mg/dL (0.57-1.00) Estimat Glomerular Filtration Rate 81mL/min (>59) Glucose Level 111mg/dL (60-99) Calcium Level 9.2mg/dL (8.5-10.1) Total Bilirubin 0.3mg/dL (0.0-1.2) Aspartate Amino Transf (AST/SGOT) 45U/L (0-50) Alanine Aminotransferase (ALT/SGPT) 25U/L (0-32) Alkaline Phosphatase 108U/L (25-165) Total Protein 5.4g/dL (6.4-8.4) Albumin 2.7g/dL (3.4-5.0) Test 08/20/16 11:15 Assessment/Plan Assessment/Plan Assessment: * Patient is needing warfarin management for a DVT. * Patient was given warfarin 5 mg on 08/19/16 after the INR improved to 1.66. * Patient's INR goal range: 2-3 * Patient's INR on 08/20/16: 2.04 * INR is within range. Plan: * The INR has progressed rapidly since 08/18/16 so will give a 4 mg warfarin dose on 08/20/16 and will reevaluate with the PT/INR on 08/21/16. * If the INR is within range tomorrow, the heparin drip can be discontinued. * Will continue to follow. Elfego Solo Aug 20, 2016 11:56
--- NOTE | 2016-08-20 19:01 | NUR ---
Mobility/comfort/ PT/INR: Patient has been up in her chair for part of the day with her legs elevated . She is a contact guard to stand and transfer. Patient has had no co/o pain today. Patient has been started coumadin and per MD patients Heparin drip was discontinued at 1630 after her evening dose of Coumadin was given to her. Her PT/INR is in range 22.3/2/04now.
--- NOTE | 2016-08-20 22:45 | PCM.PNMED ---
Subjective Date of Service Aug 20, 2016 Exam Vital Signs Vital Sign - Last Date Time Temp Pulse Resp B/P Pulse Ox O2 Delivery O2 Flow Rate FiO2 08/20/16 20:54 37.2 83 18 102/59 95 Room Air Intake and Output 08/19/16 08/19/16 08/20/16 Cumulative From/Thru 15:00 23:00 07:00 08/14/16 16:30 - 08/20/16 06:57 Intake Total 200 ml 614 ml 300 ml 5965 ml Output Total 650 ml 401 ml 600 ml 6701 ml Balance -450 ml 213 ml -300 ml -736 ml Intake Oral 200 ml 320 ml 300 ml 4590 ml IV Total 294 ml 1375 ml Output Urine Total 400 ml 600 ml 6050 ml Stool Total 1 ml 1 ml Urine/Stool Mix 250 ml 400 ml 650 ml # Voids 1 11 # Bowel Movements 1 0 8 Exam General: Patient appears more comfortable sitting up in a chair with her right leg elevated. HEENT: Head is atraumatic normocephalic. Eyes: Pupils are equally round and reactive to light and accommodation. Extraocular muscles are intact. Sclera are white anicteric. Subconjunctival mucosa is pink. Ears and nose are unremarkable. Oropharynx: There is no mucosal lesions, there is no thrush, there is no pharyngitis. Neck: Is supple, there are no nodes, or masses or tenderness. Chest: Is fairly clear to auscultation and percussion. There are no rales, rhonchi, wheezes or rubs. Heart: Rate, rhythm is regular. There is no new murmur, rub or gallop. Abdomen: Good bowel sounds are present. Abdomen is soft, nontender, no organomegaly or masses were appreciated. Extremities: Right lower extremity edema has improved since yesterday. The erythema is also improved. However, there still remains a wound in the area of the distal posterior calf that was present on admission from hospitalization in the [facility] reportedly caused by sequential compression devices. This is according to the daughter. This area is clean and dry there is no necrotic tissue there is no evidence of surrounding crepitance or cellulitis. Minimal to no purulent drainage. Neurologic: There are no focal neurological deficits. Cranial nerves II through XII are intact. There are no sensory or motor deficits. Psychiatric: Patients mood is calm and shows no sign of agitation. Genital: Deferred Rectal: Deferred Lab and Diagnostics Result Diagram: 08/20/167 08/20/16 0507 Microbiology Name: JOVANNY DUBON Age/Sex: 86/F Attend Dr: Hope Power MD Acct: [id number] Unit: [id number] Status: ADM IN Location: [facility] 3029-1 Re08/14/16 Disch: Specimen: [id number] Collected: 08/14/16 Status: COMP Req#: [id number] Received: 08/14/16 Source: URINE CC Sp Desc : MARZENA Morse Dr: Kallie Reynoso MD Ordered: URINE CULT Procedure Result Verified Site Microbiology MERLENE CULT URINE Final 08/16/16-41 Organism 1 ESCHERICHIA COLI U COLONY COUNT/QUANTITY >100,000 CFU/ml Cefazolin-predicts results for the oral agents, cefaclor,cefdinir, cefpodoximen, cefprozil, cefuroximne axetil, cephalexin and loracarbed when used for therapy of uncomplicated UTI's due to E. coli, K. pneumoniae, and Proteus mirabilis. Cefpodoxime, cefdinir and cefuroxime axetil may be tested individually because some isolates may be susceptible to these agents while testing resistant to cefazolin. (CLSI H548-Y84 pg 53)@VERY YOUNG, WILL TRY TO SET UP TODAY AND RE-INC 1. ESCHERICHIA COLI M.I.C Interp --------- ------ * AMOXICILLIN/CLAVULATE <=2 S * AMPICILLIN <=2 S * CEFAZOLIN (CEPHALOSPORIN) UTI 4 S * CEFEPIME <=1 S * CEFTRIAXONE <=1 S * CEFUROXIME SODIUM 4 S * CIPROFLOXACIN <=0.25 S * ERTAPENEM <=0.5 S * GENTAMICIN <=1 S * IMIPENEM <=1 S * LEVOFLOXACIN <=0.12 S * NITROFURANTOIN 32 S * TETRACYCLINE <=1 S * TOBRAMYCIN <=1 S * TRIMETHOPRIM/SULFAMETHOXAZOLE <=20 S X-Rays, CTs and MRIs Date of Service: 08/14/16 8737 PROCEDURE: US VENOUS LEG DUPLEX UNILATERAL, RIGHT INDICATIONS: leg swelling COMPARISON: None. IMPRESSION: Deep venous thrombosis in the right lower extremity as above Dictated by: Alirio Amor M.D. on 08/14/2016 at 18:42 Date of Service: 08/14/16 1706 PROCEDURE: X-RAY CHEST ONE VIEW, PORTABLE ([id number]) INDICATIONS: bilateral crackles COMPARISON: None. IMPRESSION: Small bilateral pleural effusions, left greater than right, with adjacent atelectasis. Dictated by: Alirio Amor M.D. on 08/14/2016 at 17:56 Date of Service: 08/14/16 1819 PROCEDURE: CT ANGIO CHEST PULMONARY EMBOLISM ([id number]) INDICATIONS: deep vein thrombosis, tachycardia COMPARISON: None. IMPRESSION: No pulmonary embolism Bilateral small-moderate pleural effusions with adjacent atelectasis. Cardiomegaly, and CT evidence of decreased cardiac output. Recommend clinical correlation Rounded consolidation within the right middle lobe which could represent scarring although technically indeterminate. Recommend followup noncontrast chest CT in 3 months to exclude metastatic/malignant nodule. Severely motion degraded examination Dictated by: Alirio Amor M.D. on 08/14/2016 at 20:33 12-lead ECG Sinus tachycardia with a rate of 119, left axis deviation, prolonged QRS, prolonged QTC (504), left bundle branch block of unknown chronicity, poor R- wave progression, nonspecific ST-T wave changes. No previous ECG for comparison. Cardiac Echo Impressions Echocardiogram Report Name: JOVANNY DUBON SStudy Date: 08/15/2016 Height: 64 in Hospital Exam Location: [facility] Weight: 132 lb Gender: Female BSA: 1.6 m2 : 1930 Age: 86 yrs BP: 118/ 61 mmHg Reason For Study: Congestive Heart Failure Ordering Physician: HOSPITALIST [facility] Performed By: Freeman Luciano Referring Physician: MALLY NAVARRETE Interpretation Summary The left ventricle is mildly dilated. There is a moderate size apical thrombus. Left ventricular systolic function is severely reduced. The ejection fraction is estimated to be 15-20%. There is severe global hypokinesis of the left ventricle. There is a significant dyssynchronous contraction pattern, consistent with a conduction abnormality. The E/A ratio is reversed with an elevated E/E', suggesting impaired early relaxation of the left ventricle with possible increased filling pressures. The right ventricle is not well visualized. The right ventricle grossly appears normal in size with probable normal systolic function. Pulmonary artery pressures cannot be estimated because of the lack of a measurable TR jet velocity. Borderline left atrial enlargement. Right atrial size is normal. There is mild mitral regurgitation. There is mild aortic regurgitation. There is no other significant valvular heart disease. The aortic root is normal size. There is a large left-sided pleural effusion. Assessment & Plan 86-year-old female with recent hospitalization for acute renal failure who presents with lower extremity edema, worse on the right and findings consistent with right lower extremity DVT and congestive heart failure. acute, active # RLE DVT with edema, provoked due to immobilization from recent hospitalization , started on heparin gtt, PE negative on CTA -Continue Coumadin. Will continue heparin for bridging therapy until 5 PM today when patient receives her next Coumadin dose, as Coumadin is therapeutic today and patient has received 5 days of heparin for bridging therapy. # Apical mural thrombus, POA, EKG-LBBB:unknown chronicity, troponins trended up. cannot exclude ACS -Appreciate cardiology input, especially ischemic w/u -Continue AC as above -Dr. Macario Meehan had recommended Coumadin to the family and the patient, and the patient's daughter and patient would like to continue Coumadin rather than Eliquis. We will therefore continue bridging therapy with heparin drip and discontinue when Coumadin is therapeutic. Then discharge home on Coumadin. Appreciate Dr. Gonzalez's follow-up on this patient. Will discuss case with him. # CHF, POA, TTE 08/15 showed EF 15-20%, severe global hypokinesis, dyssynchrony, large left-sided effusion presumably cardiac -Started lasix 40iv daily, switch to 40mg po tomorrow -Started [id number] on admission, coreg 6.25 bid today, increase to 9.5 bid tomorrow, # Acute encephalopathy, POA, likely toxic metabolic given UTI, multiple acute conditions, also with underlying dementia, significantly improved, likely at baseline today. -frequent reorientation, # Mild ROSHNI, POA, Cr1.15, currently 1.05, recent hx of asa toxicity, renal failure on temporary dialysis -avoid renal toxin, renal adjust meds, # UTI, POA, E.coli+ pansensitive, afebrile. -started Augmentin bid 08/16 to finish 7days. chronic, stable # Thrombocytopenia of unknown chronicity, improved # Rounded consolidation within the right middle lobe of unknown chronicity, present on admission and noted on CT, monitor for now, Disposition: We will continue heparin for for bridging therapy and discharged home on Coumadin when therapeutic. Limited Interventions (okay for defibrillation and medication and BiPAP. NO intubation, NO compressions) Pain Evaluation: Adequate Pain Control GI Prophylaxis: Not indicated VTE Prophylaxis: Other (therapeutic heparin for DVT and a left ventricle apical clot) Resuscitation Status: Limited Interventions (okay for defibrillation and medication and BiPAP. NO intubation, NO compressions) Limited Interventions: Cardioversion/Defibrillation, BiPAP Henry Valencia MD Aug 20, 2016 22:45
[2016-08-21] VITALS (8 sets, daily range): BP systolic 92–118; BP diastolic 52–63; PULSE 75–89; RESP 16–19; O2SAT 94–98
[2016-08-21] MEDS: Sodium Chloride LOK Flush 10 mL Syringe IVFLUSH SCH ×3 (00:30→17:38)
[2016-08-21 06:34] LABS: BASOPHILS % (AUTO) 0.3 % (0-3); EOSINOPHILS % (AUTO) 3.2 % (0-5); Mean Corpuscular Hemoglobin 28.8 pg (27.0-35.0); Mean Corpuscular Volume 92.7 fL (81-100); Platelet Count 279 bil/L (150-400)
[2016-08-21 06:42] LABS: INR 3.09 ratio
[2016-08-21] MEDS: Amoxicillin-Clav 875-125 mg Tablet PO SCH ×2 (10:10→21:29)
--- NOTE | 2016-08-21 11:03 | NUR ---
NIKITA signed. CARISSA Chun
--- NOTE | 2016-08-21 12:28 | NUR ---
Social Work-continued d/c planning: Data:EMR Reviewed. Pt is on day 7 of hospitalization for DVT per H&P. Pt is not medically stable at this time. PT continues to recommend home with services. Pt will need INR checks and wound care per MD. confirms that pt will likely be back on [place] on Tuesday or to have HH services start. HUMERA called Arley at [facility] who confirms they will be able to start care for pt on 08/26 and will be able to do wound care and INR checks. HUMERA has made referral for RN,PT, and OT. SW confirmed plan with pt and daughter at bedside, both agreeable. F2F in folder. SW will continue to follow. Assessment:Pt who would benefit from HH. Plan:Pt to discharge home with daughter to provide 24/7 care via POV. Referral made to [facility] for RN-wound care and INR checks, PT, and OT. Pt to go to [place] until mid week. [facility] can open on 08/26 on [place]. F2F in folder. HUMERA will continue to follow. CARISSA Chun
--- NOTE | 2016-08-21 18:40 | NUR ---
PT/INR/ Patients PT /INR this morning increased to 33.8/3.09 after receiving her Coumadin dose last night. Per MD patients Coumadin dose was with held today. Patients PT/INR is being reevaluated tomorrow by MD for further dosing.
--- NOTE | 2016-08-21 23:01 | PCM.PNMED ---
Subjective Date of Service Aug 21, 2016 Subjective Patient is beginning to feel better. She has no new complaints. Exam Vital Signs Vital Sign - Last Date Time Temp Pulse Resp B/P Pulse Ox O2 Delivery O2 Flow Rate FiO2 08/21/16 21:09 37.3 89 18 107/62 94 Room Air Intake and Output 08/20/16 08/20/16 08/21/16 Cumulative From/Thru 15:00 23:00 07:00 08/14/16 16:30 - 08/21/16 06:27 Intake Total 714 ml 300 ml 6979 ml Output Total 200 ml 650 ml 7551 ml Balance 514 ml -350 ml -572 ml Intake Oral 420 ml 300 ml 5310 ml IV Total 294 ml 1669 ml Output Urine Total 200 ml 650 ml 6900 ml Stool Total 1 ml Urine/Stool Mix 650 ml # Voids 11 # Bowel Movements 1 9 Exam General: Patient remains more comfortable sitting up in a chair with her right leg elevated and propped up on her bed. HEENT: Head is atraumatic normocephalic. Eyes: Pupils are equally round and reactive to light and accommodation. Extraocular muscles are intact. Sclera are white anicteric. Subconjunctival mucosa is pink. Ears and nose are unremarkable. Oropharynx: There is no mucosal lesions, there is no thrush, there is no pharyngitis. Neck: Is supple, there are no nodes, or masses or tenderness. Chest: Remains fairly clear to auscultation and percussion. There are no rales , rhonchi, wheezes or rubs. Heart: Rate, rhythm is regular. There is no new murmur, rub or gallop. Abdomen: Good bowel sounds are present. Abdomen is soft, nontender, no organomegaly or masses were appreciated. Extremities: Right lower extremity edema has improved since yesterday. The erythema is also improved. However, there still remains a wound in the area of the distal posterior calf that was present on admission from hospitalization in the [facility] reportedly caused by sequential compression devices. This is according to the daughter. This wound appears to be filling in, however there is some pressure which appears to be developing. There is no evidence of surrounding crepitance or cellulitis. His minimal to no purulent drainage. Neurologic: There are no focal neurological deficits. Cranial nerves II through XII are intact. There are no sensory or motor deficits. Psychiatric: Patients mood is calm and shows no sign of agitation. Genital: Deferred Rectal: Deferred Lab and Diagnostics Result Diagram: 08/21/1659908/21/16599 Microbiology Name: JOVANNY DUBON Age/Sex: 86/F Attend Dr: Hope Power MD Acct: [id number] Unit: [id number] Status: ADM IN Location: [facility] [place] 3029-1 Re08/14/16 Disch: Specimen: [id number] Collected: 08/14/16 Status: COMP Req#: [id number] Received: 08/14/16 Source: URINE CC Sp Desc : MARZENA Morse Dr: Kallie Reynoso MD Ordered: URINE CULT Procedure Result Verified Site Microbiology MERLENE CULT URINE Final 08/16/16-41 Organism 1 ESCHERICHIA COLI U COLONY COUNT/QUANTITY >100,000 CFU/ml Cefazolin-predicts results for the oral agents, cefaclor,cefdinir, cefpodoximen, cefprozil, cefuroximne axetil, cephalexin and loracarbed when used for therapy of uncomplicated UTI's due to E. coli, K. pneumoniae, and Proteus mirabilis. Cefpodoxime, cefdinir and cefuroxime axetil may be tested individually because some isolates may be susceptible to these agents while testing resistant to cefazolin. (CLSI F037-H14 pg 53)@VERY YOUNG, WILL TRY TO SET UP TODAY AND RE-INC 1. ESCHERICHIA COLI M.I.C Interp --------- ------ * AMOXICILLIN/CLAVULATE <=2 S * AMPICILLIN <=2 S * CEFAZOLIN (CEPHALOSPORIN) UTI 4 S * CEFEPIME <=1 S * CEFTRIAXONE <=1 S * CEFUROXIME SODIUM 4 S * CIPROFLOXACIN <=0.25 S * ERTAPENEM <=0.5 S * GENTAMICIN <=1 S * IMIPENEM <=1 S * LEVOFLOXACIN <=0.12 S * NITROFURANTOIN 32 S * TETRACYCLINE <=1 S * TOBRAMYCIN <=1 S * TRIMETHOPRIM/SULFAMETHOXAZOLE <=20 S X-Rays, CTs and MRIs Date of Service: 08/14/16 7188 PROCEDURE: US VENOUS LEG DUPLEX UNILATERAL, RIGHT INDICATIONS: leg swelling COMPARISON: None. IMPRESSION: Deep venous thrombosis in the right lower extremity as above Dictated by: Alirio Amor M.D. on 08/14/2016 at 18:42 Date of Service: 08/14/16 1706 PROCEDURE: X-RAY CHEST ONE VIEW, PORTABLE ([id number]) INDICATIONS: bilateral crackles COMPARISON: None. IMPRESSION: Small bilateral pleural effusions, left greater than right, with adjacent atelectasis. Dictated by: Alirio Amor M.D. on 08/14/2016 at 17:56 Date of Service: 08/14/16 1819 PROCEDURE: CT ANGIO CHEST PULMONARY EMBOLISM ([id number]) INDICATIONS: deep vein thrombosis, tachycardia COMPARISON: None. IMPRESSION: No pulmonary embolism Bilateral small-moderate pleural effusions with adjacent atelectasis. Cardiomegaly, and CT evidence of decreased cardiac output. Recommend clinical correlation Rounded consolidation within the right middle lobe which could represent scarring although technically indeterminate. Recommend followup noncontrast chest CT in 3 months to exclude metastatic/malignant nodule. Severely motion degraded examination Dictated by: Alirio Amor M.D. on 08/14/2016 at 20:33 12-lead ECG Sinus tachycardia with a rate of 119, left axis deviation, prolonged QRS, prolonged QTC (504), left bundle branch block of unknown chronicity, poor R- wave progression, nonspecific ST-T wave changes. No previous ECG for comparison. Cardiac Echo Impressions Echocardiogram Report Name: JOVANNY DUBON SStudy Date: 08/15/2016 Height: 64 in Hospital Exam Location: [facility] Weight: 132 lb Gender: Female BSA: 1.6 m2 : 1930 Age: 86 yrs BP: 118/ 61 mmHg Reason For Study: Congestive Heart Failure Ordering Physician: HOSPITALIST [facility] Performed By: Freeman Luciano Referring Physician: MALLY NAVARRETE Interpretation Summary The left ventricle is mildly dilated. There is a moderate size apical thrombus. Left ventricular systolic function is severely reduced. The ejection fraction is estimated to be 15-20%. There is severe global hypokinesis of the left ventricle. There is a significant dyssynchronous contraction pattern, consistent with a conduction abnormality. The E/A ratio is reversed with an elevated E/E', suggesting impaired early relaxation of the left ventricle with possible increased filling pressures. The right ventricle is not well visualized. The right ventricle grossly appears normal in size with probable normal systolic function. Pulmonary artery pressures cannot be estimated because of the lack of a measurable TR jet velocity. Borderline left atrial enlargement. Right atrial size is normal. There is mild mitral regurgitation. There is mild aortic regurgitation. There is no other significant valvular heart disease. The aortic root is normal size. There is a large left-sided pleural effusion. Assessment & Plan 86-year-old female with recent hospitalization for acute renal failure who presents with lower extremity edema, worse on the right and findings consistent with right lower extremity DVT and congestive heart failure. acute, active # RLE DVT with edema present at the time of admission, provoked due to immobilization from recent hospitalization, started on heparin gtt, PE negative on CTA -Continue Coumadin. Will continue heparin for bridging therapy until 5 PM today when patient receives her next Coumadin dose, as Coumadin is therapeutic today and patient has received 5 days of heparin for bridging therapy. -There is an open wound which is dressed this wound is filling in. However, there is a developing. We will need to get advice from the wound care team on Tuesday. # Apical mural thrombus, present at time of admission, EKG-LBBB:unknown chronicity, troponins trended up. cannot exclude ACS -Appreciate cardiology input, especially ischemic w/u -Continue AC as above -Dr. Macario Meehan had recommended Coumadin to the family and the patient, and the patient's daughter and patient would like to continue Coumadin rather than Eliquis. We will therefore continue bridging therapy with heparin drip and discontinue when Coumadin is therapeutic. Then discharge home on Coumadin. Appreciate Dr. Gonzalez's follow-up on this patient. Will discuss case with him. # CHF, present on admission, TTE 08/15 showed EF 15-20%, severe global hypokinesis , dyssynchrony, large left-sided effusion presumably cardiac -Started lasix 40iv daily, switched to 40mg po and will continue -Started lisinopril 5mg on admission, will continue -Continue coreg 6.25 bid # Acute encephalopathy, present at the time of admission, likely toxic metabolic given UTI, multiple acute conditions, also with underlying dementia, significantly improved, likely at baseline today. -frequent reorientation as needed for patient, -Patient is to go home her daughter Joanne Orosco # Mild ROSHNI, back to baseline. -avoid renal toxin, renal adjust meds, # UTI, present attend admission with E.coli+ pansensitive, afebrile. -started Augmentin bid 08/16 to finish 7days. chronic, stable # Thrombocytopenia of unknown chronicity, improved # Rounded consolidation within the right middle lobe of unknown chronicity, present on admission and noted on CT, monitor for now, Disposition: The patient has finished heparin for for bridging therapy and will be discharged home on Coumadin when therapeutic and stable to be safe. Suspect patient will be discharged in 48 hours.. Limited Interventions (okay for defibrillation and medication and BiPAP. NO intubation, NO compressions) Pain Evaluation: Adequate Pain Control GI Prophylaxis: Not indicated VTE Prophylaxis: Other (therapeutic heparin for DVT and a left ventricle apical clot) Resuscitation Status: Limited Interventions (okay for defibrillation and medication and BiPAP. NO intubation, NO compressions) Limited Interventions: Cardioversion/Defibrillation, BiPAP Henry Valencia MD Aug 21, 2016 23:01
[2016-08-22] VITALS (7 sets, daily range): BP systolic 95–118; BP diastolic 54–68; PULSE 82–98; RESP 18; O2SAT 93–98
[2016-08-22] MEDS: Sodium Chloride LOK Flush 10 mL Syringe IVFLUSH SCH ×3 (00:36→16:03)
[2016-08-22 07:13] LABS: BASOPHILS % (AUTO) 0.6 % (0-3); EOSINOPHILS % (AUTO) 2.6 % (0-5); MONOCYTES % (AUTO) 13.8 % (4-12); Mean Corpuscular Hemoglobin 29.6 pg (27.0-35.0); Mean Corpuscular Volume 91.7 fL (81-100); NEUTROPHILS % (AUTO) 60.2 % (40-74); Platelet Count 333 bil/L (150-400)
[2016-08-22] MEDS: Amoxicillin-Clav 875-125 mg Tablet PO SCH ×2 (09:16→19:25)
[2016-08-22 09:48] LABS: INR 2.32 ratio
--- NOTE | 2016-08-22 18:31 | NUR ---
INR patient's INR decreased to 2.32. per pharmacy protocol patient received 5 mg PO Warfarin this afternoon. no signs of bleeding. continue to monitor.
--- NOTE | 2016-08-22 23:34 | PCM.PNMED ---
Subjective Date of Service Aug 22, 2016 Subjective Patient is feeling better today. She remains pleasantly confused. However she has more strength and energy and has been able to ambulate in the room. She has decreased pain in her left lower extremity. Exam Vital Signs Vital Sign - Last Date Time Temp Pulse Resp B/P Pulse Ox O2 Delivery O2 Flow Rate FiO2 08/22/16 20:44 37.0 86 18 100/60 98 Room Air Intake and Output 08/21/16 08/21/16 08/22/16 Cumulative From/Thru 15:00 23:00 07:00 08/14/16 16:30 - 08/22/16 06:41 Intake Total 636 ml 400 ml 8015 ml Output Total 500 ml 875 ml 8926 ml Balance 136 ml -475 ml -911 ml Intake Oral 636 ml 400 ml 6346 ml IV Total 1669 ml Output Urine Total 500 ml 875 ml 8275 ml Stool Total 1 ml Urine/Stool Mix 650 ml # Voids 2 13 # Bowel Movements 2 1 12 Exam General: Patient remains comfortable laying supine in bed with her right lower extremity elevated above her heart. HEENT: Head is atraumatic normocephalic. Eyes: Pupils are equally round and reactive to light and accommodation. Extraocular muscles are intact. Sclera are white anicteric. Subconjunctival mucosa is pink. Ears and nose are unremarkable. Oropharynx: There is no mucosal lesions, there is no thrush, there is no pharyngitis. Neck: Is supple, there are no nodes, or masses or tenderness. Chest: Remains fairly clear to auscultation and percussion. There are no rales , rhonchi, wheezes or rubs. Heart: Rate, rhythm is regular. There is no new murmur, rub or gallop. Abdomen: Good bowel sounds are present. Abdomen is soft, nontender, no organomegaly or masses were appreciated. Extremities: Right lower extremity edema has improved again today. The erythema is also improved. However, there still remains a wound in the area of the distal posterior calf that was present on admission from hospitalization in the [facility] reportedly caused by sequential compression devices. This is according to the daughter Joanne. This wound appears to be filling in, however there is some eschar which appears to be developing. There is no evidence of surrounding crepitance or cellulitis. His minimal to no purulent drainage. Neurologic: There are no focal neurological deficits. Cranial nerves II through XII are intact. There are no sensory or motor deficits. Psychiatric: Patients mood is calm and shows no sign of agitation. Genital: Deferred Rectal: Deferred Lab and Diagnostics Result Diagram: 08/22/1637 08/22/1637 Microbiology Name: JOVANNY DUBON Age/Sex: 86/F Attend Dr: Hope Power MD Acct: [id number] Unit: [id number] Status: ADM IN [place] [facility] [place]29-1 Re08/14/16 Disch: Specimen: [id number] Collected: 08/14/16 Status: COMP Req#: [id number] Received: 08/14/16 Source: URINE CC Sp Desc : PP Mini Dr: Kallie Reynoso MD Ordered: URINE CULT Procedure Result Verified Site Microbiology MERLENE CULT URINE Final 08/16/16-0941 Organism 1 ESCHERICHIA COLI U COLONY COUNT/QUANTITY >100,000 CFU/ml Cefazolin-predicts results for the oral agents, cefaclor,cefdinir, cefpodoximen, cefprozil, cefuroximne axetil, cephalexin and loracarbed when used for therapy of uncomplicated UTI's due to E. coli, K. pneumoniae, and Proteus mirabilis. Cefpodoxime, cefdinir and cefuroxime axetil may be tested individually because some isolates may be susceptible to these agents while testing resistant to cefazolin. (CLSI B319-N19 pg 53)@VERY YOUNG, WILL TRY TO SET UP TODAY AND RE-INC 1. ESCHERICHIA COLI M.I.C Interp --------- ------ * AMOXICILLIN/CLAVULATE <=2 S * AMPICILLIN <=2 S * CEFAZOLIN (CEPHALOSPORIN) UTI 4 S * CEFEPIME <=1 S * CEFTRIAXONE <=1 S * CEFUROXIME SODIUM 4 S * CIPROFLOXACIN <=0.25 S * ERTAPENEM <=0.5 S * GENTAMICIN <=1 S * IMIPENEM <=1 S * LEVOFLOXACIN <=0.12 S * NITROFURANTOIN 32 S * TETRACYCLINE <=1 S * TOBRAMYCIN <=1 S * TRIMETHOPRIM/SULFAMETHOXAZOLE <=20 S X-Rays, CTs and MRIs Date of Service: 08/14/16 6778 PROCEDURE: US VENOUS LEG DUPLEX UNILATERAL, RIGHT INDICATIONS: leg swelling COMPARISON: None. IMPRESSION: Deep venous thrombosis in the right lower extremity as above Dictated by: Alirio Amor M.D. on 08/14/2016 at 18:42 Date of Service: 08/14/16 1706 PROCEDURE: X-RAY CHEST ONE VIEW, PORTABLE ([id number]) INDICATIONS: bilateral crackles COMPARISON: None. IMPRESSION: Small bilateral pleural effusions, left greater than right, with adjacent atelectasis. Dictated by: Alirio Amor M.D. on 08/14/2016 at 17:56 Date of Service: 08/14/16 1819 PROCEDURE: CT ANGIO CHEST PULMONARY EMBOLISM ([id number]) INDICATIONS: deep vein thrombosis, tachycardia COMPARISON: None. IMPRESSION: No pulmonary embolism Bilateral small-moderate pleural effusions with adjacent atelectasis. Cardiomegaly, and CT evidence of decreased cardiac output. Recommend clinical correlation Rounded consolidation within the right middle lobe which could represent scarring although technically indeterminate. Recommend followup noncontrast chest CT in 3 months to exclude metastatic/malignant nodule. Severely motion degraded examination Dictated by: Alirio Amor M.D. on 08/14/2016 at 20:33 12-lead ECG Sinus tachycardia with a rate of 119, left axis deviation, prolonged QRS, prolonged QTC (504), left bundle branch block of unknown chronicity, poor R- wave progression, nonspecific ST-T wave changes. No previous ECG for comparison. Cardiac Echo Impressions Echocardiogram Report Name: JOVANNY DUBON SStudy Date: 08/15/2016 Height: 64 in Hospital Exam Location: [facility] Weight: 132 lb Gender: Female BSA: 1.6 m2 : 1930 Age: 86 yrs BP: 118/ 61 mmHg Reason For Study: Congestive Heart Failure Ordering Physician: HOSPITALIST [facility] Performed By: Freeman Luciano Referring Physician: MALLY NAVARRETE Interpretation Summary The left ventricle is mildly dilated. There is a moderate size apical thrombus. Left ventricular systolic function is severely reduced. The ejection fraction is estimated to be 15-20%. There is severe global hypokinesis of the left ventricle. There is a significant dyssynchronous contraction pattern, consistent with a conduction abnormality. The E/A ratio is reversed with an elevated E/E', suggesting impaired early relaxation of the left ventricle with possible increased filling pressures. The right ventricle is not well visualized. The right ventricle grossly appears normal in size with probable normal systolic function. Pulmonary artery pressures cannot be estimated because of the lack of a measurable TR jet velocity. Borderline left atrial enlargement. Right atrial size is normal. There is mild mitral regurgitation. There is mild aortic regurgitation. There is no other significant valvular heart disease. The aortic root is normal size. There is a large left-sided pleural effusion. Assessment & Plan 86-year-old female with recent hospitalization for acute renal failure who presents with lower extremity edema, worse on the right and findings consistent with right lower extremity DVT and congestive heart failure. acute, active # RLE DVT with edema present at the time of admission, provoked due to immobilization from recent hospitalization, started on heparin gtt, PE negative on CTA -Continue Coumadin per pharmacy. -Will have discontinued heparin for bridging therapy until 5 PM 08/20/2015 as patient has received 5 days of heparin for bridging therapy. -There is an open wound which is dressed this wound is filling in. However, there is a developing. We will need to get advice from the wound care team on Tuesday. # Apical mural thrombus, present at time of admission, EKG-LBBB:unknown chronicity, troponins trended up. cannot exclude ACS -Appreciate cardiology input, especially ischemic w/u -Continue AC as above -Dr. Macario Meehan had recommended Coumadin to the family and the patient, and the patient's daughter and patient would like to continue Coumadin rather than Eliquis. We will therefore continue bridging therapy with heparin drip and discontinue when Coumadin is therapeutic. Then discharge home on Coumadin. Appreciate Dr. Gonzalez's follow-up on this patient. Will discuss case with him. # CHF, present on admission, TTE 08/15 showed EF 15-20%, severe global hypokinesis , dyssynchrony, large left-sided effusion presumably cardiac -Started lasix 40iv daily, switched to 40mg po and will continue -Started lisinopril 5mg on admission, will continue -Continue coreg 6.25 bid # Acute encephalopathy, present at the time of admission, likely toxic metabolic given UTI, multiple acute conditions, also with underlying dementia, significantly improved, likely at baseline today. She is pleasantly confused -Patient requires frequent reorientation as needed for patient, -Patient is to go home her daughter Joanne Orosco # Mild ROSHNI, back to baseline. -avoid renal toxin, renal adjust meds, # UTI, present attend admission with E.coli+ pansensitive, afebrile. -started Augmentin bid 08/16 to finish 7days. chronic, stable # Thrombocytopenia of unknown chronicity, improved # Rounded consolidation within the right middle lobe of unknown chronicity, present on admission and noted on CT, monitor for now, Disposition: The patient has finished heparin for for bridging therapy and will be discharged home on Coumadin when therapeutic and stable to be safe. Suspect patient will be discharged in 48 hours.. Limited Interventions (okay for defibrillation and medication and BiPAP. NO intubation, NO compressions) Pain Evaluation: Adequate Pain Control GI Prophylaxis: Not indicated VTE Prophylaxis: Other (therapeutic heparin for DVT and a left ventricle apical clot) Resuscitation Status: Limited Interventions (okay for defibrillation and medication and BiPAP. NO intubation, NO compressions) Limited Interventions: Cardioversion/Defibrillation, BiPAP Henry Valencia MD Aug 22, 2016 23:34
[2016-08-23] MEDS: Sodium Chloride LOK Flush 10 mL Syringe IVFLUSH SCH ×2 (01:28→08:10)
[2016-08-23 04:55] VITALS: BP 109/81; PULSE 87; RESP 16; O2SAT 94
--- NOTE | 2016-08-23 06:16 | NUR ---
Uneventful Night pt has been able to sleep during the night with minimal interruptions. VSS, afebrile, on RA. states pain medications have been effective to control right LE pain. call light within reach, using appropriately to make needs known.
[2016-08-23 07:14] LABS: INR 2.58 ratio
[2016-08-23 07:17] LABS: BASOPHILS % (AUTO) 0.6 % (0-3); EOSINOPHILS % (AUTO) 3.2 % (0-5); MONOCYTES % (AUTO) 14.4 % (4-12); Mean Corpuscular Hemoglobin 28.7 pg (27.0-35.0); Mean Corpuscular Volume 92.8 fL (81-100); NEUTROPHILS % (AUTO) 59.9 % (40-74); Platelet Count 321 bil/L (150-400)
[2016-08-23] MEDS: Amoxicillin-Clav 875-125 mg Tablet PO SCH (08:09)
--- NOTE | 2016-08-23 10:15 | NUR ---
Wound Care Pt seen at bedside with daughter Joanne present for re-evaluation of right posterior calf ulcer. Ulcer measures 5 cm x 3 cm x o.2 cm. scant sanguineous drainage. periwound is intact, no tunneling or undermining noted. Wound base is eschar and fibrin combination. Pulses are bounding at DP and AUTOTRANSFUSIONIST. Removed eschar sharply with 15# blade, redressed with hydrogel and adhesive foam dressing. Daughter instructed in dressing change procedure, follow up appt is scheduled at wound center for 08/27/16.
--- NOTE | 2016-08-23 10:21 | NUR ---
NIKITA Signed 10AM
--- NOTE | 2016-08-23 10:49 | PCM.DIMED ---
Discharge Instructions Date of Service Aug 23, 2016 Dates of Hospitalization Aug 14, 2016 at 21:53 Discharge Diagnosis Discharge Diagnosis Intra-Cardiac Thrombus along with DVT right Lower Extremity and UTI Diet Heart Healthy Activity Home Health Phyical Therapy Call your provider Fever or Chills, Shortness of breath, Bleeding, Chest pain, Vomitting, Excessive diarrhea, Weakness (unilateral), Other Patient Instructions Follow-up Provider: Scottie Tay DO Follow-up with PCP in: 1 week (Patient needs Coumadin management) Provider: Macario Meehan MD Follow-up in: 2 weeks (Follow up for intra-cardiac thrombus) Henry Valencia MD Aug 23, 2016 10:49
[2016-08-23] MEDS ORDERED: LISI-571 PO (10:56)
[2016-08-23] MEDS ORDERED: CARV6.252 PO (10:56)
[2016-08-23] MEDS ORDERED: MELA1TAB9 PO (10:56)
[2016-08-23] MEDS ORDERED: TRAM-14 PO (10:56)
[2016-08-23] MEDS ORDERED: FURO40TA4 PO (10:56)
[2016-08-23] MEDS ORDERED: WARF2TAB PO (10:56)
--- NOTE | 2016-08-23 11:34 | NUR ---
Social Work-discharge: Data:EMR Reviewed. Pt is on day 9 of hospitalization for DVT per H&P. Pt is medically stable for discharge today. PT has cleared pt for home with Services. Pt will need INR Checked on Tuesday08/25/16. HUMERA confirmed with Arley Lazcano with [facility], liaison who confirms they will be able to do INR check with pt on Tuesday. SW provided him with F2F and orders for RN-wound care and INR checks, PT, and OT. Daughter to provide 24/7 care for pt at home. SW confirmed plan with pt and daughter at bedside.SW informed Daughter that start of care with HH would be Tuesday for INR check and [facility] will be calling to set this up. Daughter provided SW with phone number [phone] of where they will be staying at discharge. HUMERA provided this number to Arley at [facility] to call to schedule appointment. All updated and agreeable to plan. Assessment:pt who would benefit from Home Health. Plan:Pt to discharge home with daughter today via POV. Daughter to provide 24/7 care. F2F and orders have been provided to [facility] for RN-wound care and INR checks, PT, and OT. INR check will need to happen on Tuesday which [facility] confirms they will be able to do. All updated and agreeable to plan. CARISSA Chun
--- NOTE | 2016-08-23 12:50 | NUR ---
Discharge Pt escorted curbside via @ [phone]. No s/sx of distress. DC interventions completed, DC paper work reviewed and signature obtained. IV DC'd intact, all belongings with pt.
--- NOTE | 2016-08-24 00:21 | PCM.DC.MED ---
Discharge Summary Date of Service Aug 23, 2016 Dates of Hospitalization Date of Hospital Admission Aug 14, 2016 at 21:53 Date of Discharge: Aug 23, 2016 Providers: Admitting Physician: Hope Power MD Primary Care Physician: Scottie Tay DO Attending Physician: Hope Power MD Diagnosis at Time of Discharge Diagnosis at Time of Discharge Intra-Cardiac Thrombus along with DVT right Lower Extremity and UTI Consultations Cardiology was consulted Procedures XRay, CTs & MRIs Date of Service: 08/14/16 1703 PROCEDURE: US VENOUS LEG DUPLEX UNILATERAL, RIGHT INDICATIONS: leg swelling COMPARISON: None. IMPRESSION: Deep venous thrombosis in the right lower extremity as above Dictated by: Alirio Amor M.D. on 08/14/2016 at 18:42 Date of Service: 08/14/16 1706 PROCEDURE: X-RAY CHEST ONE VIEW, PORTABLE ([id number]) INDICATIONS: bilateral crackles COMPARISON: None. IMPRESSION: Small bilateral pleural effusions, left greater than right, with adjacent atelectasis. Dictated by: Alirio Amor M.D. on 08/14/2016 at 17:56 Date of Service: 08/14/16 0379 PROCEDURE: CT ANGIO CHEST PULMONARY EMBOLISM ([id number]) INDICATIONS: deep vein thrombosis, tachycardia COMPARISON: None. IMPRESSION: No pulmonary embolism Bilateral small-moderate pleural effusions with adjacent atelectasis. Cardiomegaly, and CT evidence of decreased cardiac output. Recommend clinical correlation Rounded consolidation within the right middle lobe which could represent scarring although technically indeterminate. Recommend followup noncontrast chest CT in 3 months to exclude metastatic/malignant nodule. Severely motion degraded examination Dictated by: Alirio Amor M.D. on 08/14/2016 at 20:33 ECG 12 Lead Sinus tachycardia with a rate of 119, left axis deviation, prolonged QRS, prolonged QTC (504), left bundle branch block of unknown chronicity, poor R- wave progression, nonspecific ST-T wave changes. No previous ECG for comparison. Cardiac Echo Impression Echocardiogram Report Name: JOVANNY GARCIA SStudy Date: 08/15/2016 Height: 64 in Hospital Exam Location: [facility] Weight: 132 lb Gender: Female BSA: 1.6 m2 : 1930 Age: 86 yrs BP: 118/ 61 mmHg Reason For Study: Congestive Heart Failure Ordering Physician: HOSPITALIST [facility] Performed By: Freeman Luciano Referring Physician: MALLY NAVARRETE Interpretation Summary The left ventricle is mildly dilated. There is a moderate size apical thrombus. Left ventricular systolic function is severely reduced. The ejection fraction is estimated to be 15-20%. There is severe global hypokinesis of the left ventricle. There is a significant dyssynchronous contraction pattern, consistent with a conduction abnormality. The E/A ratio is reversed with an elevated E/E', suggesting impaired early relaxation of the left ventricle with possible increased filling pressures. The right ventricle is not well visualized. The right ventricle grossly appears normal in size with probable normal systolic function. Pulmonary artery pressures cannot be estimated because of the lack of a measurable TR jet velocity. Borderline left atrial enlargement. Right atrial size is normal. There is mild mitral regurgitation. There is mild aortic regurgitation. There is no other significant valvular heart disease. The aortic root is normal size. There is a large left-sided pleural effusion. Brief History Mrs. Garcia is very pleasant 86 y/o F with no prior cardiac history. The patient was admitted to [facility]IA THE ER on 08/14/2016 with complaints of b/l lower extremity edema worse on right than left. The patient subsequently underwent a venous duplex ultrasound that revealed a DVT in her right leg. The patient's pBNP was significantly elevated and she was noted to have some crackles on lung examination. In lieu of the aforementioned findings there were concerns for a new onset of CHF. The patient had an echocardiogram that showed her to have a severely reduced LVEF with a moderate sized LV apical clot. The patient has recently hospitalized for an acute ASA toxicity that ultimately required hemodialysis. The patient is no longer undergoing HD. She has been very active / ambulatory prior to her recent lower extremity swelling. The patient reports that since her lower extremities have been swelling she has been much more sedentary. She denies any history of bleeding issues. She was admitted to the hospital service for further evaluation treatment recommendations. Hospital Course 86-year-old female with recent hospitalization for acute renal failure who presents with lower extremity edema, worse on the right and findings consistent with right lower extremity DVT and congestive heart failure. acute, active # RLE DVT with edema present at the time of admission, provoked due to immobilization from recent hospitalization, started on heparin gtt, PE negative on CTA -Continue Coumadin per pharmacy. -Will have discontinued heparin for bridging therapy until 5 PM 08/20/2015 as patient has received 5 days of heparin for bridging therapy. -There is an open wound which is dressed this wound is filling in. However, there is a developing. We will need to get advice from the wound care team on Tuesday. # Apical mural thrombus, present at time of admission, EKG-LBBB:unknown chronicity, troponins trended up. cannot exclude ACS -Appreciate cardiology input, especially ischemic w/u -Continue AC as above -Dr. Macario Meehan had recommended Coumadin to the family and the patient, and the patient's daughter and patient would like to continue Coumadin rather than Eliquis. We will therefore continue bridging therapy with heparin drip and discontinue when Coumadin is therapeutic. Then discharge home on Coumadin. Appreciate Dr. Gonzalez's follow-up on this patient. Will discuss case with him. # CHF, present on admission, TTE 08/15 showed EF 15-20%, severe global hypokinesis , dyssynchrony, large left-sided effusion presumably cardiac -Started lasix 40iv daily, switched to 40mg po and will continue -Started lisinopril 5mg on admission, will continue -Continue coreg 6.25 bid # Acute encephalopathy, present at the time of admission, likely toxic metabolic given UTI, multiple acute conditions, also with underlying dementia, significantly improved, likely at baseline today. She is pleasantly confused -Patient requires frequent reorientation as needed for patient, -Patient is to go home her daughter Joanne Orosco # Mild ROSHNI, back to baseline. -avoid renal toxin, renal adjust meds, # UTI, present attend admission with E.coli+ pansensitive, afebrile. -started Augmentin bid 08/16 to finish 7days. chronic, stable # Thrombocytopenia of unknown chronicity, improved # Rounded consolidation within the right middle lobe of unknown chronicity, present on admission and noted on CT, monitor for now, Disposition: Patient is stable for discharge home today. Limited Interventions (okay for defibrillation and medication and BiPAP. NO intubation, NO compressions) Exam Vital Signs (Last) Date Time Temp Pulse Resp B/P Pulse Ox O2 Delivery O2 Flow Rate FiO2 08/23/16 04:55 36.6 87 16 109/81 94 Room Air Exam General: Patient remains comfortable laying supine in bed with her right lower extremity elevated above her heart. HEENT: Head is atraumatic normocephalic. Eyes: Pupils are equally round and reactive to light and accommodation. Extraocular muscles are intact. Sclera are white anicteric. Subconjunctival mucosa is pink. Ears and nose are unremarkable. Oropharynx: There is no mucosal lesions, there is no thrush, there is no pharyngitis. Neck: Is supple, there are no nodes, or masses or tenderness. Chest: Remains fairly clear to auscultation and percussion. There are no rales , rhonchi, wheezes or rubs. Heart: Rate, rhythm is regular. There is no new murmur, rub or gallop. Abdomen: Good bowel sounds are present. Abdomen is soft, nontender, no organomegaly or masses were appreciated. Extremities: Right lower extremity edema has improved again today. The erythema is also improved. However, there still remains a wound in the area of the distal posterior calf that was present on admission from hospitalization in the [facility] reportedly caused by sequential compression devices. This is according to the daughter Joanne. This wound appears to be filling in, however there is some eschar which appears to be developing. There is no evidence of surrounding crepitance or cellulitis. His minimal to no purulent drainage. Neurologic: There are no focal neurological deficits. Cranial nerves II through XII are intact. There are no sensory or motor deficits. Psychiatric: Patients mood is calm and shows no sign of agitation. Genital: Deferred Rectal: Deferred Test 08/14/16 18:05 08/14/16 20:20 08/15/16 06:26 08/16/16 05:40 Pro-B-Type Natriuretic Peptide 34080nf/mL (0-738) Prealbumin 13mg/dL (20-40) Thyroid Stimulating Hormone (TSH) 4.860uIU/mL (0.450-4.500) Free Thyroxine 1.12ng/dL (0.82-1.77) Urine Color Straw (YELLOW) Urine Appearance Slightly cloudy Urine pH 5.5 (5.0-8.0) Urine Specific King 1.015 (1.003-1.035) Urine Protein 30mg/dL (NEG,TRACE) Urine Glucose (UA) Negativemg/dL (NEGATIVE) Urine Ketones Negativemg/dL (NEGATIVE) Urine Occult Blood Small (NEGATIVE) Urine Nitrite Positive (NEGATIVE) Urine Bilirubin Negative (NEGATIVE) Urine Urobilinogen Normalmg/dL (NORMAL) Urine Leukocyte Esterase Small (NEGATIVE) Urine RBC 0-2/hpf (0-2) Urine WBC Packed/hpf (0-5) Urine Epithelial Cells Few/hpf (NONE-MOD) Urine Crystals None seen (NONE SEEN) Urine Bacteria Many/hpf (NONE-FEW) Urine Hyaline Casts None/lpf (NONE) Urine Granular Casts None seen (NONE SEEN) Urine Waxy Casts None seen (NONE SEEN) Urine Red Blood Cell Casts None seen (NONE SEEN) Urine White Blood Cell Casts None seen (NONE SEEN) Urine Mucus None seen (None Seen) Urine Trichomonas None seen (NONE SEEN) Urine Yeast None (NONE SEEN) Urine Culture Reflexed Indicated Triglycerides Level 92mg/dL (0-149) Cholesterol Level 146mg/dL (100-199) LDL Cholesterol, Calculated 87.600mg/dL (0-99) VLDL Cholesterol 18.400mg/dL HDL Cholesterol 40mg/dL (>39) Cholesterol/HDL Ratio 3.65 (0.0-4.4) Procalcitonin 0.10ng/mL (See Comment) Troponin T 0.031ug/L (0.0-0.011) Test 08/17/16 20:19 08/18/16 06:16 08/19/16 02:33 08/20/16 11:15 Hold Urine Received (Received) Phosphorus Level 2.8mg/dL (2.5-4.9) Erythrocyte Sedimentation Rate 36mm/hr (0-40) Magnesium Level 1.9mg/dL (1.6-2.6) Activated Partial Thromboplast Time 76.3sec (22.8-33.0) Test 08/23/16 06:18 08/23/16 09:07 White Blood Count 8.1th/mm3 (3.8-10.1) Red Blood Count 3.62mil/mm3 (3.90-5.20) Mean Corpuscular Volume 92.8fL (81-100) Mean Corpuscular Hemoglobin 28.7pg (27.0-35.0) Mean Corpuscular Hemoglobin Concent 31.0% (32.0-37.0) Red Cell Distribution Width 15.6% (12.3-15.4) Platelet Count 321bil/L (150-400) Neutrophils (%) (Auto) 59.9% (40-74) Lymphocytes (%) (Auto) 21.4% (14-46) Monocytes (%) (Auto) 14.4% (4-12) Eosinophils (%) (Auto) 3.2% (0-5) Basophils (%) (Auto) 0.6% (0-3) Prothrombin Time 28.1sec (8.1-12.5) Prothromb Time International Ratio 2.58ratio Sodium Level 141mEq/L (134-144) Potassium Level 4.6mEq/L (3.5-5.2) Chloride Level 101mEq/L (97-108) Carbon Dioxide Level 31mmol/L (18-29) Blood Urea Nitrogen 11mg/dL (8-27) Creatinine 0.87mg/dL (0.57-1.00) Estimat Glomerular Filtration Rate 88mL/min (>59) Glucose Level 105mg/dL (60-99) Calcium Level 8.8mg/dL (8.5-10.1) Total Bilirubin 0.3mg/dL (0.0-1.2) Aspartate Amino Transf (AST/SGOT) 27U/L (0-50) Alanine Aminotransferase (ALT/SGPT) 20U/L (0-32) Alkaline Phosphatase 99U/L (25-165) Total Protein 5.3g/dL (6.4-8.4) Albumin 2.8g/dL (3.4-5.0) Hemoglobin 10.3g/dL (12.0-15.6) Hematocrit 32.4% (35.0-46.0) Microbiology Results Name: JOVANNY GARCIA Age/Sex: 86/F Attend Dr: Hope Power MD Acct: [id number] Unit: [id number] Status: ADM IN Location: [facility] 3029-1 Re08/14/16 Disch: Specimen: [id number] Collected: 08/14/16 Status: COMP Req#: [id number] Received: 08/14/16 Source: URINE CC Sp Desc : PP Subm Dr: Kallie Reynoso MD Ordered: URINE CULT Procedure Result Verified Site Microbiology MERLENE CULT URINE Final 08/16/16 Organism 1 ESCHERICHIA COLI U COLONY COUNT/QUANTITY >100,000 CFU/ml Cefazolin-predicts results for the oral agents, cefaclor,cefdinir, cefpodoximen, cefprozil, cefuroximne axetil, cephalexin and loracarbed when used for therapy of uncomplicated UTI's due to E. coli, K. pneumoniae, and Proteus mirabilis. Cefpodoxime, cefdinir and cefuroxime axetil may be tested individually because some isolates may be susceptible to these agents while testing resistant to cefazolin. (CLSI Y347-C31 pg 53)@VERY YOUNG, WILL TRY TO SET UP TODAY AND RE-INC 1. ESCHERICHIA COLI M.I.C Interp --------- ------ * AMOXICILLIN/CLAVULATE <=2 S * AMPICILLIN <=2 S * CEFAZOLIN (CEPHALOSPORIN) UTI 4 S * CEFEPIME <=1 S * CEFTRIAXONE <=1 S * CEFUROXIME SODIUM 4 S * CIPROFLOXACIN <=0.25 S * ERTAPENEM <=0.5 S * GENTAMICIN <=1 S * IMIPENEM <=1 S * LEVOFLOXACIN <=0.12 S * NITROFURANTOIN 32 S * TETRACYCLINE <=1 S * TOBRAMYCIN <=1 S * TRIMETHOPRIM/SULFAMETHOXAZOLE <=20 S Discharge Medications Discharge Medications Carvedilol (Carvedilol) 6.25 Mg Tablet 6.25 MG PO BIDWM Prescribed by: SUSAN VALENCIA MD Furosemide (Furosemide) 40 Mg Tablet 40 MG PO DAILY Prescribed by: SUSAN VALENCIA MD Lisinopril (Lisinopril) 5 Mg Tablet 5 MG PO DAILY Prescribed by: SUSAN VALENCIA MD Melatonin (Melatonin) 1 Mg Tablet 4 MG PO HS Prescribed by: SUSAN VALENCIA MD Warfarin Sodium (Coumadin) 2 Mg Tablet 4 MG PO DAILY Prescribed by: SUSAN VALENCIA MD As needed Tramadol (Ultram) 50 Mg Tablet 50 MG PO TID PRN PRN For Pain Prescribed by: SUSAN VALENCIA MD Followup Plan Disposition: Patient is being discharged home with her daughter Joanne Orosco Discharge Diet: Heart Healthy Discharge Activity: Home Health Phyical Therapy Follow-up Provider: Scottie Tay DO Follow-up with PCP in: 1 week (Patient needs Coumadin management) Provider: Macario Meehan MD Follow-up in: 2 weeks (Follow up for intra-cardiac thrombus) Time spent Time spent on discharging this patient was greater than 35 minutes, over half of which was involved in counseling and coordination of care. Henry Valencia MD Aug 24, 2016 00:21
--- NOTE | 2016-08-24 10:44 | NUR ---
Follow up phone for CHF patients Date: 08/24/16 Time: 1043 no answer; message left pt set up with RN services at discharge; not eligible for oupt chf edu clinic at this time Information Discussed: Questions patient had:
== END 2016-08-23 12:46 | disposition home health service (06) | DRG 291 ==
LOC: SED 15:56 → MPC 21:53
PROVIDERS: ADMIT Specialist; ATTEND Specialist
DX: I50.21 Acute systolic (congestive) heart failure (principal); G92 Toxic encephalopathy; I82.411 Acute embolism and thrombosis of right femoral vein; L97.819 Non-pressure chronic ulcer of other part of right lower leg with unspecified severity; I24.8 Other forms of acute ischemic heart disease; N39.0 Urinary tract infection, site not specified; N17.9 Acute kidney failure, unspecified; I42.9 Cardiomyopathy, unspecified; D72.829 Elevated white blood cell count, unspecified; R00.0 Tachycardia, unspecified; D69.6 Thrombocytopenia, unspecified; R94.4 Abnormal results of kidney function studies; I44.7 Left bundle-branch block, unspecified; I51.3 Intracardiac thrombosis, not elsewhere classified; B96.20 Unspecified Escherichia coli [E. coli] as the cause of diseases classified elsewhere; F03.90 Unspecified dementia, unspecified severity, without behavioral disturbance, psychotic disturbance, mood disturbance, and anxiety